=== PATIENT | male | born 1980 | race American Indian/Alaskan Native ===

== ENCOUNTER 2016-12-04 15:38 | Emergency (ER) | payer MEDICAID ==
--- NOTE | 2016-12-04 17:30 | Emergency Department Report ---
ED Psych HPI - General Chief Complaint: Psych Stated Complaint: MH/DEPRESSION Time Seen by Provider: 12/04/16 17:09 Source: EMS Mode of arrival: Ambulatory Limitations: No Limitations - History of Present Illness Initial Comments: 36-year-old male presents to the emergency department for psychiatric evaluation. Patient states he was discharged from [facility] 5 days ago. He states he was doing well until he got into an argument with his roommate at the halfway last night. Patient states he began having suicidal thoughts and thoughts about hurting his roommate. Patient states he wanted to hang himself. He continues to have these thoughts at this time. He denies visual or auditory hallucinations. Patient states that he flushed his medications down the toilet last night. There are no other complaints. MD Complaint: suicidal ideation -: Gradual, Last night Associated Psychiatric Symptoms: suicidal ideation History of same: Yes Quality: constant Improves With: none Worsens With: none Context: significant life stressor Associated Symptoms: denies other symptoms Treatments Prior to Arrival: none If Self Harm: admits thoughts of, has plan - Related Data Previous Rx's Medication Instructions Recorded Last Taken Type Albuterol Sulfate [Ventolin HFA] 2 puff IH Q4H PRN #1 hfa.aer.ad 02/28/14 Unknown Rx Azithromycin [Zithromax Z-MARGOT] 250 mg PO DAILY #6 tablet 02/28/14 Unknown Rx Promethazine [Phenergan] 25 mg PO Q6H PRN #15 tablet 02/28/14 Unknown Rx Ranitidine (Nf) [Zantac (Nf)] 150 mg PO Q12H #60 tablet 02/28/14 Unknown Rx Allergies Allergy/AdvReac Type Severity Reaction Status Date / Time No Known Allergies Allergy Unverified 02/28/14 19:26 ED Review of Systems ROS: Stated complaint: MH/DEPRESSION Other details as noted in HPI Comment: All other systems reviewed and negative Psychiatric: suicidal thoughts. denies: auditory hallucinations, visual hallucinations ED Past Medical Hx - Past Medical History Previous Medical History?: Yes Hx Headaches / Migraines: Yes Hx Psychiatric Treatment: Yes (anger management issues, Bipolar, ETOH) - Surgical History Past Surgical History?: No - Family History Family history: no significant - Social History Smoking Status: Never Smoker Substance Use Type: Alcohol, Marijuana - Medications Home Medications: Home Medications Medication Instructions Recorded Confirmed Last Taken Type Albuterol Sulfate [Ventolin HFA] 2 puff IH Q4H PRN #1 hfa.aer.ad 02/28/14 Unknown Rx Azithromycin [Zithromax Z-MARGOT] 250 mg PO DAILY #6 tablet 02/28/14 12/21/15 Unknown Rx Promethazine [Phenergan] 25 mg PO Q6H PRN #15 tablet 02/28/14 12/21/15 Unknown Rx Ranitidine (Nf) [Zantac (Nf)] 150 mg PO Q12H #60 tablet 02/28/14 12/21/15 Unknown Rx ED Physical Exam - General Limitations: No Limitations General appearance: alert, in no apparent distress - Head Head exam: Present: atraumatic, normocephalic - Eye Eye exam: Present: normal appearance, PERRL, EOMI - ENT ENT exam: Present: normal exam, normal orophraynx, mucous membranes moist - Neck Neck exam: Present: normal inspection, full ROM. Absent: tenderness - Respiratory Respiratory exam: Present: normal lung sounds bilaterally. Absent: respiratory distress - Cardiovascular Cardiovascular Exam: Present: regular rate, normal rhythm, normal heart sounds - GI/Abdominal GI/Abdominal exam: Present: soft, normal bowel sounds. Absent: distended, tenderness - Extremities Exam Extremities exam: Present: normal inspection, full ROM. Absent: tenderness - Back Exam Back exam: Present: normal inspection, full ROM. Absent: tenderness - Neurological Exam Neurological exam: Present: alert, oriented X3. Absent: motor sensory deficit - Psychiatric Psychiatric exam: Present: normal affect, normal mood, suicidal ideation - Skin Skin exam: Present: warm, dry, intact ED Course Vital Signs 12/04/16 17:49 O2 Sat by Pulse 99 Oximetry ED Medical Decision Making - Lab Data Result diagrams: 12/04/16 17:21 12/04/16 17:21 - Medical Decision Making Laboratory results reviewed. Patient is medically cleared. Form 1013 has been signed and placed in the patient's chart. Patient is awaiting mental health evaluation and placement. - Differential Diagnosis bipolar disorder, suicidal ideation, medication noncompliance Critical care attestation.: If time is entered above; I have spent that time in minutes in the direct care of this critically ill patient, excluding procedure time. ED Disposition Clinical Impression: Bipolar 1 disorder, depressed, moderate, Suicidal ideations Disposition: DC/TX-65 PSY HOSP/PSY UNIT Is pt being admited?: No Condition: Stable Referrals: PRIMARY CARE, [Primary Care Provider] - 3-5 Days Time of Disposition: 18:05
[2016-12-04 17:37] LABS: Bilirubin,Urine Negative (Negative); Blood,Urine Moderate (Negative); Ketones,Urine Trace mg/dL (Negative); Leukocyte Esterase,Urine Negative (Negative); Nitrite,Urine Negative (Negative)
[2016-12-04 17:38] LABS: Bacteria,Urine 1+ /HPF (Negative); Mucus,Urine 3+ /HPF; Urine Drugs of Abuse Note Disclamer; WBC,Urine < 1.0 /HPF (0.0-6.0)
[2016-12-04 17:47] LABS: Basophils % (Auto) 0.6 % (0.0-1.8); Eosinophils % (Auto) 0.9 % (0.0-4.3); Hematocrit 45.4 % (35.5-45.6); Hemoglobin 14.5 gm/dl (11.8-15.2); Mean Corpuscular HGB Conc 32 % (32-34); Mean Corpuscular Hemoglobin 28 pg (28-32); Mean Corpuscular Volume 87 fl (84-94); Platelet Count 324 K/mm3 (140-440); Red Blood Count 5.22 M/mm3 (3.65-5.03); Red Cell Distribution Width 15.2 % (13.2-15.2); White Blood Count 6.7 K/mm3 (4.5-11.0)
[2016-12-04 18:03] LABS: Anion Gap 19 mmol/L; BUN/Creatinine Ratio 9.09; Blood Urea Nitrogen 10 mg/dL (9-20); Calcium 9.6 mg/dL (8.4-10.2); Carbon Dioxide 25 mmol/L (22-30); Chloride 107.1 mmol/L (98-107); Glucose 97 mg/dL (75-100); Potassium 4.5 mmol/L (3.6-5.0); Sodium 147 mmol/L (137-145)
--- NOTE | 2016-12-05 11:01 | Consultation ---
History of Present Illness - Reason for Consult Consult date: 12/05/16 Reason for consult: depression and expression of SI Medications and Allergies Allergies Allergy/AdvReac Type Severity Reaction Status Date / Time No Known Allergies Allergy Unverified 02/28/14 19:26 Home Medications Medication Instructions Recorded Confirmed Last Taken Type Albuterol Sulfate [Ventolin HFA] 2 puff IH Q4H PRN #1 hfa.aer.ad 02/28/14 Unknown Rx Promethazine [Phenergan] 25 mg PO Q6H PRN #15 tablet 02/28/14 12/04/16 Unknown Rx Ranitidine (Nf) [Zantac (Nf)] 150 mg PO Q12H #60 tablet 02/28/14 12/04/16 Unknown Rx Mental Status Exam - Vital signs Last Vital Signs Temp 98 F 12/04/16 19:00 Pulse 78 12/04/16 19:00 Resp 16 12/04/16 19:00 BP 126/78 12/04/16 19:00 Pulse Ox 100 12/04/16 19:00 Results Result Diagrams: 12/04/16 17:21 12/04/16 17:21 Abnormal lab results 12/04/16 12/04/16 12/04/16 Range/Units 17:05 17:21 17:21 RBC 5.22 H (3.65-5.03) M/mm3 Sodium 147 H (137-145) mmol/L Chloride 107.1 H (98-107) mmol/L Ur Specific [place] 1.031 H (1.003-1.030) Urine Blood Moderate A (Negative) All other labs normal. Assessment and Plan Assessment and plan: CHIEF COMPLAINT IN PATIENTS WORDS: HISTORY OF PRESENT ILLNESS REQUIRING ADMISSION TO INPATIENT LEVEL OF CARE: (Describe the onset of Illness, Intensity of Symptoms, and Circumstances Leading to Admission) This is a 46 year-old domiciled male who reports a formal's past psychiatric history of major depression versus bipolar disorder now presenting due to recent reemergence of severe depression with associated suicidal thoughts and a plan to hang himself. Patient reports that he has been feeling down due to the of a family member. However, medical record review suggests that he had a dispute with somebody in the skilled nursing and didn't want to stay there or with his mother. It seems like placement might be an issue at the current time. On my examination, patient continued to report passive suicidal thoughts and noted that he called ambulance because he did not want to after having those thoughts. PSYCHIATRIC REVIEW OF SYSTEMS: Substance: Daily alcohol and marijuana use Depression: Withdrawn, passive suicidal thoughts, low moods Cierra: Currently denies labile moods, no current flight of ideas, not currently impulsive Psychosis: no AVH. No paranoia/grandiosity/erotomania Anxiety/ OCD/ PTSD: denies somatic symptoms, flashbacks, nightmares, avoidance, panic attacks Suicidality: Recent expression of desire to harm self by hanging self Other Self-Injurious Behavior: none currently, no SIB noted recently Violent/ Aggressive Behavior: none noted CURRENT MEDICATIONS: ( Psychiatric and Non-psychiatric ) Seroquel Depakote ALLERGIES: NKDA PAST PSYCHIATRIC HISTORY: ( Prior Treatment, Precipitating Factors, Diagnosis, and Course of Treatment ) Inpatient: Unknown Outpatient: Sees psychiatrist Prior Suicide Attempts: denies Prior Self-Injurious Behaviors: denies PAST PSYCHIATRIC MEDICATION TRIALS: Unknown to the patient MEDICAL HISTORY: (Chronic and Acute Illnesses, Current Medical Treatment, Recent Hospitalizations) Denies HISTORY OF TRAUMA/ABUSE: Patient denies on clinical examination DRUG / ALCOHOL ABUSE HISTORY: As above Detoxification / Withdrawal: none noted SOCIAL HISTORY: (Educational Level, Employment, Support System, Interpersonal Relationships) He resides in a skilled nursing, dispute with the member of the skilled nursing, mother seems supportive FAMILY HISTORY: Psychiatric/Substance Abuse MENTAL STATUS EXAM: General Appearance: casually dressed, in acute distress Sensorium/Consciousness: alert and responding to external stimuli Eye Contact: limited Attitude / Behavior: cooperative, but guarded Psychomotor & Musculoskeletal Activity: WNL Mood: fine Affect: constricted Speech / Language: normal Thought Processes: organized, logical, linear Thought Content: Passive SI, no HI Perception: no AVH Orientation: person, place, time and situation Judgment What would you do if you smelled smoke in a crowded movie theater?: poor/impulsive Insight: poor Intelligence Vocabulary, general fund of knowledge, educational level : Below Average Capacity of ADLs: Independent STRENGTHS: Insightful that he needs some help PSYCHOSOCIAL AND ENVIRONMENTAL STRESSORS: Living a skilled nursing due to disability ADMITTING DIAGNOSES Psychiatric: Depressive disorder Evidence for the following: Bipolar disorder most recent episode depression Medical: n/a INITIAL PLAN OF CARE AND TREATMENT GOALS: Restart home medication of Depakote and Seroquel Reevaluate tomorrow for me to continue placement in inpatient psychiatric facility
--- NOTE | 2016-12-06 13:17 | Progress Note ---
Subjective - Reason for Consult Reason for consult: depression Mental Status Exam - Vital signs Last Vital Signs Temp 98.1 F 12/06/16 09:45 Pulse 86 12/06/16 09:45 Resp 16 12/06/16 09:53 BP 131/72 12/06/16 09:45 Pulse Ox 99 12/06/16 09:53 Assessment and Plan Patient continues to report that he is having passive suicidal thoughts. Patient reports that he does not want to return back home because of the poor disrupted relationship with his mother. Sleep remains somewhat disturbed. At the current time, we are still awaiting placement for this patient. MENTAL STATUS EXAM: General Appearance: casually dressed, in acute distress Sensorium/Consciousness: alert and responding to external stimuli Eye Contact: limited Attitude / Behavior: cooperative, but guarded Psychomotor & Musculoskeletal Activity: WNL Mood: fine Affect: constricted Speech / Language: normal Thought Processes: organized, logical, linear Thought Content: Passive SI, no HI Perception: no AVH Orientation: person, place, time and situation Judgment What would you do if you smelled smoke in a crowded movie theater?: poor/impulsive Insight: poor Intelligence Vocabulary, general fund of knowledge, educational level : Below Average Capacity of ADLs: Independent INITIAL PLAN OF CARE AND TREATMENT GOALS: Continue home medication of Depakote and Seroquel Awaiting placement in an inpatient psychiatric facility
--- NOTE | 2016-12-07 13:31 | Progress Note ---
Subjective - Reason for Consult Reason for consult: depression and SI Mental Status Exam - Vital signs Last Vital Signs Temp 98.3 F 12/07/16 09:19 Pulse 99 H 12/07/16 09:30 Resp 18 12/07/16 09:30 BP 134/81 12/07/16 09:30 Pulse Ox 100 12/07/16 09:30 Assessment and Plan Patient continues to report that he is having passive suicidal thoughts. Patient reports that he does not want to return back home because of the poor disrupted relationship with his mother. Sleep remains somewhat disturbed. At the current time, we are still awaiting placement for this patient. Patient continues to be somewhat disorganized thought process and perseverating on how he cannot return to his mother or a long-term. MENTAL STATUS EXAM: General Appearance: casually dressed, in acute distress Sensorium/Consciousness: alert and responding to external stimuli Eye Contact: limited Attitude / Behavior: cooperative, but guarded Psychomotor & Musculoskeletal Activity: WNL Mood: fine Affect: constricted Speech / Language: normal Thought Processes: organized, logical, linear Thought Content: Passive SI, no HI Perception: no AVH Orientation: person, place, time and situation Judgment What would you do if you smelled smoke in a crowded movie theater?: poor/impulsive Insight: poor Intelligence Vocabulary, general fund of knowledge, educational level : Below Average Capacity of ADLs: Independent INITIAL PLAN OF CARE AND TREATMENT GOALS: Continue Depakote at current dose Obtain LFTs , amylase and lipase Increase Seroquel to 400 mg at bedtime for mood stability Awaiting placement in an inpatient psychiatric facility
[2016-12-08 08:46] LABS: Alanine Aminotransferase 7 units/L (7-56); Albumin 3.7 g/dL (3.9-5); Albumin/Globulin Ratio 0.9 %; Alkaline Phosphatase 52 units/L (35-129); Amylase 61 units/L (27-131); Lipase 17 units/L (13-60); Total Protein 7.8 g/dL (6.3-8.2)
[2016-12-08 09:01] LABS: Bilirubin,Direct < 0.2 mg/dL (0-0.2); Bilirubin,Indirect 0.1 mg/dL
--- NOTE | 2016-12-08 12:39 | Progress Note ---
Subjective - Reason for Consult Reason for consult: depression Mental Status Exam - Vital signs Last Vital Signs Temp 98.4 F 12/08/16 08:26 Pulse 72 12/08/16 08:26 Resp 18 12/08/16 08:26 BP 112/70 12/08/16 08:26 Pulse Ox 98 12/08/16 08:26 Assessment and Plan Patient continues to report that he is having passive suicidal thoughts. Still depressed and refusing to return back to home or mother. MENTAL STATUS EXAM: General Appearance: casually dressed, in acute distress Sensorium/Consciousness: alert and responding to external stimuli Eye Contact: limited Attitude / Behavior: cooperative, but guarded Psychomotor & Musculoskeletal Activity: WNL Mood: fine Affect: constricted Speech / Language: normal Thought Processes: organized, logical, linear Thought Content: Passive SI, no HI Perception: no AVH Orientation: person, place, time and situation Judgment What would you do if you smelled smoke in a crowded movie theater?: poor/impulsive Insight: poor Intelligence Vocabulary, general fund of knowledge, educational level : Below Average Capacity of ADLs: Independent INITIAL PLAN OF CARE AND TREATMENT GOALS: Continue Depakote at current dose LFTs and Amylase/Lipase normal Increase Seroquel to 500 mg at bedtime for mood stability Awaiting placement in an inpatient psychiatric facility
[2016-12-09 08:24] VITALS: BP 144/83
== END 2016-12-09 10:23 ==
LOC: EEVIPCON 15:38 → ED 15:38
DX: F31.9 Bipolar disorder, unspecified (principal); R45.851 Suicidal ideations; G43.909 Migraine, unspecified, not intractable, without status migrainosus; F12.10 Cannabis abuse, uncomplicated
CPT/HCPCS: 36415; 80048; 80074; 80164; 80307; 81001; 82150; 83690; 85025; 99285; G0480; 80320

== ENCOUNTER 2017-09-04 18:54 | Emergency (ER) | payer MEDICAID ==
--- NOTE | 2017-09-04 20:27 | Emergency Department Report ---
ED Psych HPI - General Stated Complaint: MH/OFF MEDS Time Seen by Provider: 09/04/17 20:17 - History of Present Illness Initial Comments: Patient is 36 years old male history of schizophrenia and bipolar disorder presented to the ER complaining of auditory and visual hallucinations. Patient stated that he is hearing voices asked him to hurt himself and that he'll but he is staying with him. Patient also stated that he is out of his psychiatric medication for a while. MD Complaint: suicidal ideation -: Gradual Associated Psychiatric Symptoms: suicidal ideation, homicidal ideation, racing thoughts, auditory hallucinations, visual hallucinations Quality: constant Context: not taking psychiatric Associated Symptoms: denies other symptoms Treatments Prior to Arrival: none If Self Harm: admits thoughts of - Related Data Previous Rx's Medication Instructions Recorded Last Taken Type Albuterol Sulfate [Ventolin HFA] 2 puff IH Q4H PRN #1 hfa.aer.ad 02/28/14 Unknown Rx Promethazine [Phenergan] 25 mg PO Q6H PRN #15 tablet 02/28/14 Unknown Rx Ranitidine (Nf) [Zantac (Nf)] 150 mg PO Q12H #60 tablet 02/28/14 Unknown Rx Allergies Allergy/AdvReac Type Severity Reaction Status Date / Time No Known Allergies Allergy Unverified 02/28/14 19:26 ED Review of Systems ROS: Stated complaint: MH/OFF MEDS Other details as noted in HPI Comment: All other systems reviewed and negative Constitutional: denies: chills, fever Respiratory: denies: orthopnea, shortness of breath, SOB with exertion Cardiovascular: denies: chest pain, palpitations Gastrointestinal: denies: abdominal pain, nausea, diarrhea Musculoskeletal: denies: back pain Neurological: denies: headache, weakness, numbness ED Past Medical Hx - Past Medical History Hx Headaches / Migraines: Yes Hx Psychiatric Treatment: Yes (anger management issues, Bipolar, ETOH) - Social History Smoking Status: Never Smoker Substance Use Type: Alcohol, Marijuana - Medications Home Medications: Home Medications Medication Instructions Recorded Confirmed Last Taken Type Albuterol Sulfate [Ventolin HFA] 2 puff IH Q4H PRN #1 hfa.aer.ad 02/28/14 Unknown Rx Promethazine [Phenergan] 25 mg PO Q6H PRN #15 tablet 02/28/14 12/04/16 Unknown Rx Ranitidine (Nf) [Zantac (Nf)] 150 mg PO Q12H #60 tablet 02/28/14 12/04/16 Unknown Rx ED Physical Exam - General Limitations: No Limitations General appearance: alert, in no apparent distress, anxious - Head Head exam: Present: atraumatic, normocephalic, normal inspection - Eye Eye exam: Present: normal appearance, PERRL - ENT ENT exam: Present: normal exam, normal orophraynx, mucous membranes moist - Neck Neck exam: Present: normal inspection, full ROM. Absent: tenderness, meningismus, lymphadenopathy - Respiratory Respiratory exam: Present: normal lung sounds bilaterally. Absent: respiratory distress, wheezes, rales, rhonchi, stridor, chest wall tenderness, accessory muscle use, decreased breath sounds, prolonged expiratory - Cardiovascular Cardiovascular Exam: Present: regular rate, normal rhythm, normal heart sounds - GI/Abdominal GI/Abdominal exam: Present: soft, normal bowel sounds. Absent: distended, tenderness, guarding, rebound, rigid, organomegaly, mass, bruit, pulsatile mass - Extremities Exam Extremities exam: Present: normal inspection, full ROM, normal capillary refill - Back Exam Back exam: Present: normal inspection, full ROM. Absent: tenderness, CVA tenderness (R), CVA tenderness (L) - Neurological Exam Neurological exam: Present: alert, oriented X3, CN II-XII intact, normal gait - Psychiatric Psychiatric exam: Present: agitated, anxious, homicidal ideation, suicidal ideation - Skin Skin exam: Present: warm, intact Critical care attestation.: If time is entered above; I have spent that time in minutes in the direct care of this critically ill patient, excluding procedure time. ED Disposition Clinical Impression: Acute psychosis, Suicidal ideation Disposition: DC/TX-65 PSY HOSP/PSY UNIT Is pt being admited?: No Condition: Stable Referrals: IJEOMA BRADY MD [Primary Care Provider] - 3-5 Days
[2017-09-04 21:25] LABS: Basophils # (Auto) 0.1 K/mm3 (0.0-0.1); Basophils % (Auto) 0.6 % (0.0-1.8); Eosinophils % (Auto) 0.2 % (0.0-4.3); Hematocrit 47.6 % (35.5-45.6); Hemoglobin 15.4 gm/dl (11.8-15.2); Lymphocytes # (Auto) 1.3 K/mm3 (1.2-5.4); Lymphocytes % (Auto) 14.1 % (13.4-35.0); Mean Corpuscular HGB Conc 32 % (32-34); Mean Corpuscular Hemoglobin 28 pg (28-32); Mean Corpuscular Volume 87 fl (84-94); Monocytes # (Auto) 0.4 K/mm3 (0.0-0.8); Monocytes % (Auto) 4.6 % (0.0-7.3); Platelet Count 396 K/mm3 (140-440); Red Blood Count 5.46 M/mm3 (3.65-5.03)
[2017-09-04 21:42] LABS: Alanine Aminotransferase 17 units/L (7-56); Albumin 4.5 g/dL (3.9-5); BUN/Creatinine Ratio 12; Blood Urea Nitrogen 12 mg/dL (9-20); Calcium 9.5 mg/dL (8.4-10.2); Hemolysis Index 5
[2017-09-05 00:16] LABS: Bilirubin,Urine NEG (Negative); Blood,Urine MOD (Negative); Color,Urine Yellow (Yellow); Mucus,Urine FEW /HPF; Protein,Urine <15 mg/dL mg/dL (Negative); RBC,Urine < 1.0 /HPF (0.0-6.0); WBC,Urine < 1.0 /HPF (0.0-6.0)
[2017-09-05 00:24] LABS: Amphetamine Screen,Urine PRESUMPTIVE NEGATIVE; Benzodiazepines Screen,Urine PRESUMPTIVE NEGATIVE; Cannabinoid Screen,Urine PRESUMPTIVE NEGATIVE; Cocaine Screen,Urine PRESUMPTIVE NEGATIVE; Methadone Screen,Urine PRESUMPTIVE NEGATIVE; Opiate Screen,Urine PRESUMPTIVE NEGATIVE
[2017-09-05 09:15] VITALS: BP 143/87
== END 2017-09-05 11:05 ==
LOC: ED 18:54
DX: F23 Brief psychotic disorder (principal); F31.9 Bipolar disorder, unspecified; G43.909 Migraine, unspecified, not intractable, without status migrainosus; F12.10 Cannabis abuse, uncomplicated; Z79.899 Other long term (current) drug therapy
CPT/HCPCS: 36415; 80053; 80307; 81001; 85025; 99285; G0480; 80320

== ENCOUNTER 2017-09-25 10:04 | Emergency (ER) | payer MEDICAID ==
[2017-09-25 10:40] LABS: Basophils % (Auto) 0.6 % (0.0-1.8); Eosinophils % (Auto) 0.6 % (0.0-4.3); Hematocrit 44.5 % (35.5-45.6); Lymphocytes # (Auto) 1.9 K/mm3 (1.2-5.4); Lymphocytes % (Auto) 24.7 % (13.4-35.0); Mean Corpuscular HGB Conc 32 % (32-34); Mean Corpuscular Hemoglobin 28 pg (28-32); Mean Corpuscular Volume 87 fl (84-94); Monocytes # (Auto) 0.6 K/mm3 (0.0-0.8); Monocytes % (Auto) 7.6 % (0.0-7.3); Platelet Count 307 K/mm3 (140-440); Red Blood Count 5.09 M/mm3 (3.65-5.03); Red Cell Distribution Width 15.2 % (13.2-15.2)
[2017-09-25 10:49] LABS: BUN/Creatinine Ratio 8; Blood Urea Nitrogen 8 mg/dL (9-20); Hemolysis Index 5
[2017-09-25 10:50] LABS: Bilirubin,Urine NEG (Negative); Blood,Urine MOD (Negative); Color,Urine Straw (Yellow); Protein,Urine <15 mg/dL mg/dL (Negative); Urobilinogen,Urine < 2.0 mg/dL (<2.0)
[2017-09-25 10:51] LABS: Alanine Aminotransferase 10 units/L (7-56); Albumin 3.9 g/dL (3.9-5); Lipase 21 units/L (13-60)
[2017-09-25 10:57] LABS: Bilirubin,Direct < 0.2 mg/dL (0-0.2)
[2017-09-25 10:58] LABS: Amphetamine Screen,Urine PRESUMPTIVE NEGATIVE; Benzodiazepines Screen,Urine PRESUMPTIVE NEGATIVE; Cannabinoid Screen,Urine PRESUMPTIVE NEGATIVE; Cocaine Screen,Urine PRESUMPTIVE NEGATIVE; Methadone Screen,Urine PRESUMPTIVE NEGATIVE; Opiate Screen,Urine PRESUMPTIVE NEGATIVE
--- NOTE | 2017-09-25 11:19 | Emergency Department Report ---
ED Psych HPI - General Chief Complaint: Psych Stated Complaint: ABDOMINAL PAIN Time Seen by Provider: 09/25/17 10:27 Source: patient, EMS Mode of arrival: Ambulatory - History of Present Illness Initial Comments: This is a 36-year-old male with bipolar disorder previously admitted to a psychiatric facility when he was having psychotic features and August. He was released from a mental health facility he states 2 days ago. He next went to [place]. Last night he states he went to a motel with a girl that was "not a good girl". This morning he states he would like to be admitted to a mental health Hospital where he could stay for a prolonged period of time. He admits that the problem is that he is not compliant with his mental health medications. He states that they were Seroquel and Depakote as he last recalls. He did not obtain any prescriptions on discharge from the psychiatric hospital in [place]. At triage the patient apparently mentioned abdominal pain. He has completely forgot about that complaint. He has no complaints of pain whatsoever. He is not voicing any suicidal or homicidal ideation. He is not agitated. He is currently cooperative. MD Complaint: other -: year(s) Associated Psychiatric Symptoms: none History of same: Yes Quality: intermittent Improves With: none Worsens With: none Context: not taking psychiatric Associated Symptoms: denies other symptoms - Related Data Previous Rx's Medication Instructions Recorded Last Taken Type Albuterol Sulfate [Ventolin HFA] 2 puff IH Q4H PRN #1 hfa.aer.ad 02/28/14 Unknown Rx Promethazine [Phenergan] 25 mg PO Q6H PRN #15 tablet 02/28/14 Unknown Rx Ranitidine (Nf) [Zantac (Nf)] 150 mg PO Q12H #60 tablet 02/28/14 Unknown Rx Divalproex ER [Depakote ER] 250 mg PO DAILY #30 tablet 09/25/17 Unknown Rx Quetiapine Fumarate [SEROquel] 50 mg PO BID #60 tab 09/25/17 Unknown Rx Allergies Allergy/AdvReac Type Severity Reaction Status Date / Time No Known Allergies Allergy Unverified 02/28/14 19:26 ED Review of Systems ROS: Stated complaint: ABDOMINAL PAIN Other details as noted in HPI Constitutional: denies: chills, fever Eyes: denies: eye pain, eye discharge, vision change ENT: denies: ear pain, throat pain Respiratory: denies: cough, shortness of breath, wheezing Cardiovascular: denies: chest pain, palpitations Endocrine: no symptoms reported Gastrointestinal: denies: abdominal pain, nausea, diarrhea Genitourinary: denies: urgency, dysuria Musculoskeletal: denies: back pain, joint swelling, arthralgia Skin: denies: rash, lesions Neurological: denies: headache, weakness, paresthesias Psychiatric: as per HPI. denies: anxiety, depression Hematological/Lymphatic: denies: easy bleeding, easy bruising ED Past Medical Hx - Past Medical History Hx Headaches / Migraines: Yes Hx Psychiatric Treatment: Yes (anger management issues, Bipolar, ETOH) - Surgical History Past Surgical History?: No - Social History Smoking Status: Never Smoker Substance Use Type: Alcohol - Medications Home Medications: Home Medications Medication Instructions Recorded Confirmed Last Taken Type Albuterol Sulfate [Ventolin HFA] 2 puff IH Q4H PRN #1 hfa.aer.ad 02/28/14 Unknown Rx Promethazine [Phenergan] 25 mg PO Q6H PRN #15 tablet 02/28/14 09/05/17 Unknown Rx Ranitidine (Nf) [Zantac (Nf)] 150 mg PO Q12H #60 tablet 02/28/14 09/05/17 Unknown Rx Divalproex ER [Depakote ER] 250 mg PO DAILY #30 tablet 09/25/17 Unknown Rx Quetiapine Fumarate [SEROquel] 50 mg PO BID #60 tab 09/25/17 Unknown Rx ED Physical Exam - General Limitations: No Limitations General appearance: alert, in no apparent distress - Head Head exam: Present: atraumatic, normocephalic - Eye Eye exam: Present: normal appearance. Absent: scleral icterus - ENT ENT exam: Present: mucous membranes moist - Neck Neck exam: Present: normal inspection. Absent: tenderness, meningismus - Respiratory Respiratory exam: Present: normal lung sounds bilaterally. Absent: respiratory distress - Cardiovascular Cardiovascular Exam: Present: regular rate, normal rhythm. Absent: systolic murmur, diastolic murmur, rubs, gallop - GI/Abdominal GI/Abdominal exam: Present: soft, normal bowel sounds. Absent: distended, tenderness, guarding, rebound, rigid, organomegaly, mass, bruit, pulsatile mass , hernia - Rectal Rectal exam: Present: deferred - Extremities Exam Extremities exam: Present: normal inspection - Back Exam Back exam: Present: normal inspection - Neurological Exam Neurological exam: Present: alert, oriented X3, CN II-XII intact, normal gait. Absent: motor sensory deficit - Psychiatric Psychiatric exam: Present: normal mood, flat affect - Skin Skin exam: Present: warm, dry, intact, normal color. Absent: rash ED Course Vital Signs 09/25/17 09/25/17 10:09 12:27 Temperature 98.6 F 98.0 F Pulse Rate 92 H 78 Respiratory 16 16 Rate Blood Pressure 145/83 Blood Pressure 147/78 [Left] O2 Sat by Pulse 98 99 Oximetry - Reevaluation(s) Reevaluation #1: I have restarted the patient's Seroquel and Dioval primary. This too appeared to be appropriate medications for his condition. He has no idea as to his dosing. Mental health consult is pending. 09/25/17 11:19 Reevaluation #2: As far as I can determine, the patient does not require involuntary confinement. If the mental health counselor finds otherwise she can confer with her psychiatrist. The patient is voluntary for admission if he is so inclined and eligible. Otherwise I am going to populate the chart with prescriptions for Seroquel and divalproex. 09/25/17 15:53 ED Medical Decision Making - Lab Data Result diagrams: 09/25/17 10:15 09/25/17 10:15 Laboratory Results - last 24 hr 09/25/17 09/25/17 09/25/17 10:15 10:15 10:15 WBC RBC Hgb Hct MCV MCH MCHC RDW Plt Count Lymph % (Auto) [place] % (Auto) Eos % (Auto) Baso % (Auto) Lymph # [place] # Eos # Baso # Seg Neutrophils % Seg Neutrophils # Sodium 141 Potassium 3.8 Chloride 101.1 Carbon Dioxide 26 Anion Gap 18 BUN 8 L Creatinine 1.0 Estimated GFR > 60 BUN/Creatinine Ratio 8 Glucose 97 Calcium 9.0 Magnesium Total Bilirubin Direct Bilirubin AST ALT Alkaline Phosphatase Total Protein Albumin Albumin/Globulin Ratio Lipase Urine Color Urine Turbidity Urine pH Ur Specific [place] Urine Protein Urine Glucose (UA) Urine Ketones Urine Blood Urine Nitrite Urine Bilirubin Urine Urobilinogen Ur Leukocyte Esterase Urine WBC (Auto) Urine RBC (Auto) Salicylates < 0.3 L Urine Opiates Screen Urine Methadone Screen Acetaminophen < 15.0 Ur Barbiturates Screen Ur Phencyclidine Scrn Ur Amphetamines Screen U Benzodiazepines Scrn Urine Cocaine Screen U Marijuana (THC) Screen Drugs of Abuse Note Plasma/Serum Alcohol 09/25/17 09/25/17 09/25/17 10:15 10:15 10:29 WBC 7.6 RBC 5.09 H Hgb 14.0 Hct 44.5 MCV 87 MCH 28 MCHC 32 RDW 15.2 Plt Count 307 Lymph % (Auto) 24.7 [place] % (Auto) 7.6 H Eos % (Auto) 0.6 Baso % (Auto) 0.6 Lymph # 1.9 [place] # 0.6 Eos # 0.0 Baso # 0.0 Seg Neutrophils % 66.5 Seg Neutrophils # 5.1 Sodium Potassium Chloride Carbon Dioxide Anion Gap BUN Creatinine Estimated GFR BUN/Creatinine Ratio Glucose Calcium Magnesium 2.00 Total Bilirubin 0.40 Direct Bilirubin < 0.2 AST 16 ALT 10 Alkaline Phosphatase 56 Total Protein 7.6 Albumin 3.9 Albumin/Globulin Ratio 1.1 Lipase 21 Urine Color Urine Turbidity Urine pH Ur Specific [place] Urine Protein Urine Glucose (UA) Urine Ketones Urine Blood Urine Nitrite Urine Bilirubin Urine Urobilinogen Ur Leukocyte Esterase Urine WBC (Auto) Urine RBC (Auto) Salicylates Urine Opiates Screen Urine Methadone Screen Acetaminophen Ur Barbiturates Screen Ur Phencyclidine Scrn Ur Amphetamines Screen U Benzodiazepines Scrn Urine Cocaine Screen U Marijuana (THC) Screen Drugs of Abuse Note Plasma/Serum Alcohol < 0.01 09/25/17 09/25/17 Unknown Unknown WBC RBC Hgb Hct MCV MCH MCHC RDW Plt Count Lymph % (Auto) [place] % (Auto) Eos % (Auto) Baso % (Auto) Lymph # [place] # Eos # Baso # Seg Neutrophils % Seg Neutrophils # Sodium Potassium Chloride Carbon Dioxide Anion Gap BUN Creatinine Estimated GFR BUN/Creatinine Ratio Glucose Calcium Magnesium Total Bilirubin Direct Bilirubin AST ALT Alkaline Phosphatase Total Protein Albumin Albumin/Globulin Ratio Lipase Urine Color Straw Urine Turbidity Clear Urine pH 6.0 Ur Specific [place] 1.003 Urine Protein <15 mg/dl Urine Glucose (UA) Neg Urine Ketones Neg Urine Blood Mod Urine Nitrite Neg Urine Bilirubin Neg Urine Urobilinogen < 2.0 Ur Leukocyte Esterase Neg Urine WBC (Auto) 1.0 Urine RBC (Auto) 2.0 Salicylates Urine Opiates Screen Presumptive negative Urine Methadone Screen Presumptive negative Acetaminophen Ur Barbiturates Screen Presumptive negative Ur Phencyclidine Scrn Presumptive negative Ur Amphetamines Screen Presumptive negative U Benzodiazepines Scrn Presumptive negative Urine Cocaine Screen Presumptive negative U Marijuana (THC) Screen Presumptive negative Drugs of Abuse Note Disclamer Plasma/Serum Alcohol Critical care attestation.: If time is entered above; I have spent that time in minutes in the direct care of this critically ill patient, excluding procedure time. ED Disposition Clinical Impression: Bipolar disorder Qualifiers: Active/Remission status: currently active Current bipolar episode type: mixed Current episode severity: severe Psychotic features: without psychotic features Qualified Code(s): F31.63 - Bipolar disorder, current episode mixed, severe, without psychotic features Disposition: DC-01 TO HOME OR SELFCARE Is pt being admited?: No Does the pt Need Aspirin: No Instructions: Bipolar Disorder (ED) Additional Instructions: Disposition as per mental health counselor. Rx as directed. Mental health follow-up. Prescriptions: Divalproex ER [Depakote ER] 250 mg PO DAILY #30 tablet Quetiapine Fumarate [SEROquel] 50 mg PO BID #60 tab Time of Disposition: 15:55
[2017-09-25 12:37] VITALS: BP 147/78
== END 2017-09-25 22:30 | disposition home or self-care (01) ==
LOC: ED 10:04
DX: F31.9 Bipolar disorder, unspecified (principal)
CPT/HCPCS: 36415; 80048; 80074; 80307; 81001; 83690; 83735; 85025; 99284; G0480; 80320

== ENCOUNTER 2017-09-26 02:12 | Emergency (ER) | payer MEDICAID ==
[2017-09-26 02:53] LABS: Basophils # (Auto) 0.1 K/mm3 (0.0-0.1); Basophils % (Auto) 0.8 % (0.0-1.8); Eosinophils # (Auto) 0.1 K/mm3 (0.0-0.4); Eosinophils % (Auto) 1.2 % (0.0-4.3); Hematocrit 46.7 % (35.5-45.6); Hemoglobin 15.4 gm/dl (11.8-15.2); Lymphocytes # (Auto) 2.5 K/mm3 (1.2-5.4); Lymphocytes % (Auto) 32.9 % (13.4-35.0); Mean Corpuscular HGB Conc 33 % (32-34); Mean Corpuscular Hemoglobin 28 pg (28-32); Mean Corpuscular Volume 86 fl (84-94); Monocytes # (Auto) 0.5 K/mm3 (0.0-0.8); Monocytes % (Auto) 6.8 % (0.0-7.3); Platelet Count 311 K/mm3 (140-440); Red Blood Count 5.42 M/mm3 (3.65-5.03)
[2017-09-26 03:13] LABS: Bilirubin,Urine NEG (Negative); Blood,Urine SM (Negative); Color,Urine Yellow (Yellow); Mucus,Urine 3+ /HPF; Protein,Urine <15 mg/dL mg/dL (Negative); Urobilinogen,Urine < 2.0 mg/dL (<2.0)
[2017-09-26 03:42] LABS: Alanine Aminotransferase 12 units/L (7-56); Albumin 4.2 g/dL (3.9-5); BUN/Creatinine Ratio 10; Blood Urea Nitrogen 9 mg/dL (9-20); Calcium 8.6 mg/dL (8.4-10.2); Hemolysis Index 7
--- NOTE | 2017-09-26 06:38 | Emergency Department Report ---
ED Psych HPI - General Chief Complaint: Psych Stated Complaint: MENTAL HEALTH Time Seen by Provider: 09/26/17 06:32 Source: patient Mode of arrival: Ambulatory - History of Present Illness Initial Comments: 36 year old male who has been seen and cleared now by mental health counselors onto successive days. I saw the patient yesterday and found he had no criteria for 1013 confinement. The same is true today. The patient was discharged and simply sat in the waiting room and reregistered. He tells me that over did come to take him to his mother's house in [place] but they stated "it was too far". I do not know the veracity of this statement. The patient states that his mother lives in [place] but he can't remember her phone number. Yesterday the patient told me that he would like to live in a mental health facility long-term. We do not have the capacity for such type of placement. This was explained to him. He does have a history of schizophrenia. He states that he went to a motel with a girl on Wednesday night so obviously he is amply functional with his ADLs. He is not hallucinating, homicidal or suicidal. He admits to chronic noncompliance with his psychiatric medication. He was given prescriptions yesterday which he obviously did not fill. MD Complaint: other Associated Psychiatric Symptoms: other Associated Symptoms: denies other symptoms Treatments Prior to Arrival: other - Related Data Previous Rx's Medication Instructions Recorded Last Taken Type Albuterol Sulfate [Ventolin HFA] 2 puff IH Q4H PRN #1 hfa.aer.ad 02/28/14 Unknown Rx Promethazine [Phenergan] 25 mg PO Q6H PRN #15 tablet 02/28/14 Unknown Rx Ranitidine (Nf) [Zantac (Nf)] 150 mg PO Q12H #60 tablet 02/28/14 Unknown Rx Divalproex ER [Depakote ER] 250 mg PO DAILY #30 tablet 09/25/17 Unknown Rx Quetiapine Fumarate [SEROquel] 50 mg PO BID #60 tab 09/25/17 Unknown Rx Allergies Allergy/AdvReac Type Severity Reaction Status Date / Time No Known Allergies Allergy Unverified 02/28/14 19:26 ED Review of Systems ROS: Stated complaint: MENTAL HEALTH Other details as noted in HPI Constitutional: denies: chills, fever Eyes: denies: eye pain, eye discharge, vision change ENT: denies: ear pain, throat pain Respiratory: denies: cough, shortness of breath, wheezing Cardiovascular: denies: chest pain, palpitations Endocrine: no symptoms reported Gastrointestinal: denies: abdominal pain, nausea, diarrhea Genitourinary: denies: urgency, dysuria Musculoskeletal: denies: back pain, joint swelling, arthralgia Skin: denies: rash, lesions Neurological: denies: headache, weakness, paresthesias Psychiatric: as per HPI. denies: homicidal thoughts, suicidal thoughts Hematological/Lymphatic: denies: easy bleeding, easy bruising ED Past Medical Hx - Past Medical History Hx Headaches / Migraines: Yes Hx Psychiatric Treatment: Yes (anger management issues, Bipolar, ETOH) - Surgical History Past Surgical History?: No - Social History Smoking Status: Never Smoker Substance Use Type: Alcohol, Marijuana - Medications Home Medications: Home Medications Medication Instructions Recorded Confirmed Last Taken Type Albuterol Sulfate [Ventolin HFA] 2 puff IH Q4H PRN #1 hfa.aer.ad 02/28/14 Unknown Rx Promethazine [Phenergan] 25 mg PO Q6H PRN #15 tablet 02/28/14 09/05/17 Unknown Rx Ranitidine (Nf) [Zantac (Nf)] 150 mg PO Q12H #60 tablet 02/28/14 09/05/17 Unknown Rx Divalproex ER [Depakote ER] 250 mg PO DAILY #30 tablet 09/25/17 Unknown Rx Quetiapine Fumarate [SEROquel] 50 mg PO BID #60 tab 09/25/17 Unknown Rx ED Physical Exam - General Limitations: No Limitations General appearance: alert, in no apparent distress - Head Head exam: Present: atraumatic, normocephalic - Eye Eye exam: Present: normal appearance. Absent: scleral icterus - ENT ENT exam: Present: mucous membranes moist - Neck Neck exam: Present: normal inspection - Respiratory Respiratory exam: Present: normal lung sounds bilaterally. Absent: respiratory distress - Cardiovascular Cardiovascular Exam: Present: regular rate, normal rhythm. Absent: systolic murmur, diastolic murmur, rubs, gallop - GI/Abdominal GI/Abdominal exam: Present: soft, normal bowel sounds. Absent: distended, tenderness, guarding, rebound - Rectal Rectal exam: Present: deferred - Extremities Exam Extremities exam: Present: normal inspection - Back Exam Back exam: Present: normal inspection - Neurological Exam Neurological exam: Present: alert, oriented X3, CN II-XII intact. Absent: motor sensory deficit - Psychiatric Psychiatric exam: Present: normal mood, flat affect - Skin Skin exam: Present: warm, dry, intact, normal color. Absent: rash ED Course Vital Signs 09/26/17 09/26/17 09/26/17 02:23 06:58 08:15 Temperature 98.5 F 98.4 F Pulse Rate 82 89 Respiratory 18 20 16 Rate Blood Pressure 153/101 Blood Pressure 153/101 138/90 [Left] O2 Sat by Pulse 97 98 99 Oximetry - Reevaluation(s) Reevaluation #1: I discussed this case with Chadd siddiqi mental health counselor. I also discussed it with the bottle caser. They both agree the patient should be simply discharged. 09/26/17 09:58 ED Medical Decision Making - Lab Data Result diagrams: 09/26/17 02:38 09/26/17 02:38 Laboratory Results - last 24 hr 09/26/17 09/26/17 09/26/17 02:38 02:38 02:38 WBC 7.6 RBC 5.42 H Hgb 15.4 H Hct 46.7 H MCV 86 MCH 28 MCHC 33 RDW 15.0 Plt Count 311 Lymph % (Auto) 32.9 [place] % (Auto) 6.8 Eos % (Auto) 1.2 Baso % (Auto) 0.8 Lymph # 2.5 [place] # 0.5 Eos # 0.1 Baso # 0.1 Seg Neutrophils % 58.3 Seg Neutrophils # 4.4 Sodium 142 Potassium 3.7 Chloride 99.9 Carbon Dioxide 26 Anion Gap 20 BUN 9 Creatinine 0.9 Estimated GFR > 60 BUN/Creatinine Ratio 10 Glucose 104 H Calcium 8.6 Total Bilirubin 0.20 AST 15 ALT 12 Alkaline Phosphatase 56 Total Protein 7.8 Albumin 4.2 Albumin/Globulin Ratio 1.2 Urine Color Urine Turbidity Urine pH Ur Specific [place] Urine Protein Urine Glucose (UA) Urine Ketones Urine Blood Urine Nitrite Urine Bilirubin Urine Urobilinogen Ur Leukocyte Esterase Urine WBC (Auto) Urine RBC (Auto) Urine Mucus Valproic Acid 19.1 L 09/26/17 Unknown WBC RBC Hgb Hct MCV MCH MCHC RDW Plt Count Lymph % (Auto) [place] % (Auto) Eos % (Auto) Baso % (Auto) Lymph # [place] # Eos # Baso # Seg Neutrophils % Seg Neutrophils # Sodium Potassium Chloride Carbon Dioxide Anion Gap BUN Creatinine Estimated GFR BUN/Creatinine Ratio Glucose Calcium Total Bilirubin AST ALT Alkaline Phosphatase Total Protein Albumin Albumin/Globulin Ratio Urine Color Yellow Urine Turbidity Clear Urine pH 5.0 Ur Specific [place] 1.026 Urine Protein <15 mg/dl Urine Glucose (UA) Neg Urine Ketones Neg Urine Blood Sm Urine Nitrite Neg Urine Bilirubin Neg Urine Urobilinogen < 2.0 Ur Leukocyte Esterase Neg Urine WBC (Auto) 2.0 Urine RBC (Auto) 7.0 Urine Mucus 3+ Valproic Acid Critical care attestation.: If time is entered above; I have spent that time in minutes in the direct care of this critically ill patient, excluding procedure time. ED Disposition Clinical Impression: Psychiatric disorder, Homelessness Disposition: DC-01 TO HOME OR SELFCARE Is pt being admited?: No Does the pt Need Aspirin: No Condition: Stable Instructions: Bipolar Disorder (ED), Schizophrenia (ED), Suicide Prevention for Adults (ED) Additional Instructions: Fill prescriptions previously given. Referrals: [facility] [Outside] - 24 Hours Time of Disposition: 09:59
[2017-09-26] MEDS ORDERED: ALUM-MAG HYDROX-SIMETH 200-200-20MG/5ML PO PRN (07:12)
[2017-09-26] MEDS ORDERED: MILK OF MAGNESIA PO PRN (07:12)
[2017-09-26] MEDS ORDERED: TYLENOL PO PRN (07:12)
[2017-09-26 08:25] VITALS: BP 138/90
== END 2017-09-26 11:11 | disposition home or self-care (01) ==
LOC: ED 02:12
DX: F29 Unspecified psychosis not due to a substance or known physiological condition (principal); Z59.0 Homelessness; G43.909 Migraine, unspecified, not intractable, without status migrainosus; F12.10 Cannabis abuse, uncomplicated
CPT/HCPCS: 36415; 80053; 80164; 81001; 85025

== ENCOUNTER 2021-01-03 11:32 | Emergency (ER) | payer MEDICAID ==
--- NOTE | 2021-01-03 13:04 | Emergency Department Report ---
HPI - General Chief Complaint: Psych Time Seen by Provider: 01/03/21 12:52 - HPI HPI: Room 12 The patient is a 40-year-old male present with a chief complaint of suicidal ideation. The patient states since 08: 00 this morning he developed suicidal ideation. Patient states he did not want to live anymore and wanted to shoot himself. Patient denies making any attempts at harming himself. ED Past Medical Hx - Past Medical History Previous Medical History?: Yes Hx Headaches / Migraines: Yes Hx Psychiatric Treatment: Yes (anger management issues, Bipolar, ETOH) - Surgical History Past Surgical History?: No - Family History Family history: no significant - Social History Smoking Status: Never Smoker Substance Use Type: None (Denies illicit drug use), Alcohol (Occasional) - Medications Home Medications: Home Medications Medication Instructions Recorded Confirmed Last Taken Type Albuterol Sulfate [Ventolin HFA] 2 puff IH Q4H PRN #1 hfa.aer.ad 02/28/14 09/05/17 Unknown Rx Promethazine [Phenergan] 25 mg PO Q6H PRN #15 tablet 02/28/14 09/05/17 Unknown Rx Ranitidine (Nf) [Zantac (Nf)] 150 mg PO Q12H #60 tablet 02/28/14 09/05/17 Un known Rx Divalproex ER [Depakote ER] 250 mg PO DAILY #30 tablet 09/25/17 Unknown Rx Quetiapine Fumarate [SEROquel] 50 mg PO BID #60 tab 09/25/17 Unknown Rx levoFLOXacin [Levaquin] 250 mg PO QDAY #7 tablet 01/03/21 Unknown Rx ED Review of Systems ROS: Stated complaint: SUICIDAL Other details as noted in HPI Constitutional: no symptoms reported Eyes: denies: eye pain ENT: denies: throat pain Respiratory: denies: no symptoms reported Cardiovascular: denies: chest pain Gastrointestinal: denies: abdominal pain Genitourinary: denies: dysuria Musculoskeletal: denies: back pain Neurological: denies: headache Psychiatric: suicidal thoughts Physical Exam - Physical Exam Vital Signs: Vital Signs 01/03/21 11:51 Temperature 99.6 F Pulse Rate 121 H Respiratory 18 Rate Blood Pressure 123/66 [Right] O2 Sat by Pulse 95 Oximetry Physical Exam: GENERAL: The patient is well-developed well-nourished male sitting in chair not appearing to be in acute distress. [] HEENT: Normocephalic. Atraumatic. Extraocular motions are intact. Patient has moist mucous membranes. NECK: Supple. Trachea midline CHEST/LUNGS: Clear to auscultation. There is no respiratory distress noted. HEART/CARDIOVASCULAR: Regular. There is no tachycardia. There is no gallop rub or murmur. ABDOMEN: Abdomen is soft, nontender. Patient has normal bowel sounds. There is no abdominal distention. SKIN: There is no rash. There is no edema. There is no diaphoresis. NEURO: The patient is awake, alert, and oriented. The patient is cooperative. The patient has no focal neurologic deficits. The patient has normal speech MUSCULOSKELETAL: There is no evidence of acute injury. ED Course Vital Signs 01/03/21 11:51 Temperature 99.6 F Pulse Rate 121 H Respiratory 18 Rate Blood Pressure 123/66 [Right] O2 Sat by Pulse 95 Oximetry ED Medical Decision Making - Lab Data Result diagrams: 01/03/21 13:40 01/03/21 13:40 - Differential Diagnosis Suicidal ideation Critical care attestation.: If time is entered above; I have spent that time in minutes in the direct care of this critically ill patient, excluding procedure time. ED Disposition Clinical Impression: Suicidal ideation Disposition: DC/TX-65 PSY HOSP/PSY UNIT Is pt being admited?: No Does the pt Need Aspirin: No Condition: Stable Prescriptions: levoFLOXacin [Levaquin] 250 mg PO QDAY #7 tablet Time of Disposition: 16:38 (Awaiting acceptance)
[2021-01-03 13:34] LABS: Amphetamine Screen,Urine Negative; Benzodiazepines Screen,Urine Negative; Cannabinoid Screen,Urine Negative; Cocaine Screen,Urine Negative; Methadone Screen,Urine Negative; Opiate Screen,Urine Negative
[2021-01-03 13:52] LABS: Bilirubin,Urine NEG (Negative); Blood,Urine MOD (Negative); Color,Urine Yellow (Yellow); Mucus,Urine 1+ /HPF; Protein,Urine <15 mg/dL mg/dL (Negative); Urobilinogen,Urine < 2.0 mg/dL (<2.0)
[2021-01-03 14:22] LABS: Basophils # (Auto) 0.1 K/mm3 (0.0-0.1); Basophils % (Auto) 1.2 % (0.0-1.8); Eosinophils # (Auto) 0.1 K/mm3 (0.0-0.4); Hemoglobin 12.9 gm/dl (11.8-15.2); Lymphocytes # (Auto) 1.7 K/mm3 (1.2-5.4); Lymphocytes % (Auto) 26.5 % (13.4-35.0); Mean Corpuscular HGB Conc 32 % (32-34); Mean Corpuscular Volume 85 fl (84-94); Monocytes # (Auto) 0.4 K/mm3 (0.0-0.8); Monocytes % (Auto) 5.9 % (0.0-7.3); Platelet Count 348 K/mm3 (140-440); Red Blood Count 4.72 M/mm3 (3.65-5.03); Red Cell Distribution Width 16.3 % (13.2-15.2)
[2021-01-03 14:40] LABS: Alanine Aminotransferase 10 units/L (7-56); Albumin 4.1 g/dL (3.9-5); BUN/Creatinine Ratio 10; Blood Urea Nitrogen 9 mg/dL (9-20); Calcium 9.4 mg/dL (8.4-10.2); Hemolysis Index 6
--- NOTE | 2021-01-04 10:40 | Event Note ---
S: No events overnight O: Vital Signs - 24 hr 01/03/21 01/03/21 01/03/21 11:51 16:52 20:16 Temperature 99.6 F 98.1 F 97.6 F Pulse Rate 121 H 72 91 H Respiratory 18 16 18 Rate Blood Pressure 123/66 122/66 122/45 [Right] O2 Sat by Pulse 95 99 100 Oximetry 01/04/21 09:40 Temperature 97.8 F Pulse Rate 90 Respiratory 20 Rate Blood Pressure 110/51 [Right] O2 Sat by Pulse 100 Oximetry A: Suicidal ideation P: 1013, awaiting psych placement
--- NOTE | 2021-01-04 10:50 | Consultation ---
History of Present Illness - Reason for Consult Consult date: 01/04/21 Reason for consult: SI - History of Present Psychiatric Illness Sandro Szymanski is a 40y/o male patient who endorses SI. He says he has a plan to shoot himself with his uncle gun. The patient says he drinks a 12 pack a day and that usually is the reason he starts feeling the way he feels. The patient says his last drink was right before coming here and states he normally starts shaking if he doesn't get a drink. He denies hallucinations of any kind. He says he has a history of Bipolar and hasn't been on meds in a long time. The patient denies any illicit drug use or nicotine. PAST PSYCHIATRIC HISTORY Diagnoses: Bipolar Suicide attempts or Self-harm behavior: Yes Prior psychiatric hospitalizations: Yes Substance Abuse history: alcohol Previous psychiatric medications tried: couldn't recall Outpatient treatment: No PAST MEDICAL HISTORY: None reported Family Psychiatric History: None reported or documented SOCIAL HISTORY Marital Status: single Living Arrangements: hotel Employment Status: Disabled Access to guns/weapons: Denies Education: high school History of Abuse: Denies Legal History: Denies REVIEW OF SYSTEMS Constitutional: Negative for weight loss ENT: Negative for stridor Respiratory: Negative for cough or hemoptysis All other systems reviewed and are negative MENTAL STATUS EXAMINATION General Appearance and Behavior: Age appropriate, good hygiene, wearing appropriate clothes, good eye contact, cooperative Cooperation: Participating/engaged Psychomotor Behavior: Psychomotor normal Mood: depressed Affect and affective range: congruent with stated mood Thought Process: goal directed Thought Content: suicidal thoughts Speech: normal tone and pace Suicidal Ideation: Yes Homicidal Ideation: Denies Hallucinations: Denies Delusions: None elicited Impulse Control: Impaired Insight and Judgment: Limited insight and judgment Memory: Impaired Attention: impaired Orientation: Alert, oriented Assessment and Plan (1) Bipolar Disorder (2) Alcohol Dependence Treatment Plan [address] 125mg po BID Prozac 10mg po daily Trazodone 50mg po qhs CIWA Sitter: Per primary Medical: Per primary Disposition: Recommend acute psychiatric inpatient Will follow Case staffed with Dr. Uribe Medications and Allergies Allergies Allergy/AdvReac Type Severity Reaction Status Date / Time No Known Allergies Allergy Unverified 02/28/14 19:26 Home Medications Medication Instructions Recorded Confirmed Last Taken Type Albuterol Sulfate [Ventolin HFA] 2 puff IH Q4H PRN #1 hfa.aer.ad 02/28/14 09/05/17 Unknown Rx Promethazine [Phenergan] 25 mg PO Q6H PRN #15 tablet 02/28/14 09/05/17 Unknown Rx Ranitidine (Nf) [Zantac (Nf)] 150 mg PO Q12H #60 tablet 02/28/14 09/05/17 Unknown Rx Divalproex ER [Depakote ER] 250 mg PO DAILY #30 tablet 09/25/17 Unknown Rx Quetiapine Fumarate [SEROquel] 50 mg PO BID #60 tab 09/25/17 Unknown Rx levoFLOXacin [Levaquin] 250 mg PO QDAY #7 tablet 01/03/21 Unknown Rx Mental Status Exam - Vital signs Last Vital Signs Temp 97.8 F 01/04/21 09:40 Pulse 90 01/04/21 09:40 Resp 20 01/04/21 09:40 BP 110/51 01/04/21 09:40 Pulse Ox 100 01/04/21 09:40 Results Result Diagrams: 01/03/21 13:40 01/03/21 13:40 Abnormal lab results 01/03/21 01/03/21 01/03/21 Range/Units 13:20 13:40 13:40 MCH 27 L (28-32) pg RDW 16.3 H (13.2-15.2) % Urine WBC (Auto) 8.0 H (0.0-6.0) /HPF Salicylates < 0.3 L (2.8-20.0) mg/dL Acetaminophen (10.0-30.0) ug/mL 01/03/21 Range/Units 13:40 MCH (28-32) pg RDW (13.2-15.2) % Urine WBC (Auto) (0.0-6.0) /HPF Salicylates (2.8-20.0) mg/dL Acetaminophen 5.0 L (10.0-30.0) ug/mL All other labs normal.
[2021-01-04] MEDS ORDERED: chlordiazePOXIDE 25 MG CAP PO PRN (10:56)
[2021-01-04] MEDS ORDERED: LORazepam 2 MG/ML VIAL IV PRN (10:56)
[2021-01-04] MEDS ORDERED: DIVALPROEX DR 125 MG TAB PO SCH (11:00)
[2021-01-04] MEDS ORDERED: FLUoxetine 10 MG TAB PO SCH (11:00)
[2021-01-04 20:02] VITALS: BP 112/51
[2021-01-04] MEDS ORDERED: traZODone 50 MG TAB PO SCH (22:00)
== END 2021-01-04 21:34 ==
LOC: ED 11:32
DX: R45.851 Suicidal ideations (principal); Z20.822 Contact with and (suspected) exposure to COVID-19; G43.909 Migraine, unspecified, not intractable, without status migrainosus; Z79.899 Other long term (current) drug therapy
CPT/HCPCS: 36415; 80053; 80307; 81001; 85025; 99285; U0003; 80320; G0480

== ENCOUNTER 2021-12-11 20:10 | Emergency (ER) | payer MEDICAID ==
[2021-12-11 22:14] LABS: Bacteria,Urine 1+ /HPF (Negative); Hyaline Casts,Urine 7 /LPF; Mucus,Urine 3+ /HPF
[2021-12-11 22:18] LABS: Amphetamine Screen,Urine PRESUMPTIVE NEGATIVE; Benzodiazepines Screen,Urine PRESUMPTIVE NEGATIVE; Cannabinoid Screen,Urine PRESUMPTIVE NEGATIVE; Cocaine Screen,Urine PRESUMPTIVE NEGATIVE; Methadone Screen,Urine PRESUMPTIVE NEGATIVE; Opiate Screen,Urine PRESUMPTIVE NEGATIVE
[2021-12-11 22:20] LABS: Bilirubin,Urine Negative (Negative); Blood,Urine 1+ (Negative); Color,Urine Yellow (Yellow)
[2021-12-11 22:21] LABS: Urobilinogen,Urine < 2.0 mg/dL (<2.0)
[2021-12-11 23:23] LABS: Basophils # (Auto) 0.1 K/mm3 (0.0-0.1); Basophils % (Auto) 0.8 % (0.0-1.8); Eosinophils % (Auto) 0.3 % (0.0-4.3); Hematocrit 41.3 % (35.5-45.6); Hemoglobin 13.4 gm/dl (11.8-15.2); Lymphocytes # (Auto) 1.9 K/mm3 (1.2-5.4); Lymphocytes % (Auto) 21.2 % (13.4-35.0); Mean Corpuscular HGB Conc 32 % (32-34); Mean Corpuscular Volume 82 fl (84-94); Monocytes # (Auto) 0.5 K/mm3 (0.0-0.8); Monocytes % (Auto) 5.5 % (0.0-7.3); Platelet Count 387 K/mm3 (140-440); Red Blood Count 5.04 M/mm3 (3.65-5.03); Red Cell Distribution Width 17.7 % (13.2-15.2)
[2021-12-11 23:36] LABS: BUN/Creatinine Ratio 13; Blood Urea Nitrogen 15 mg/dL (9-20); Calcium 9.8 mg/dL (8.4-10.2); Hemolysis Index 13
--- NOTE | 2021-12-12 00:50 | Emergency Department Report ---
ED Psych HPI - General Chief Complaint: Psych Stated Complaint: SUICIDAL THOUGHTS Time Seen by Provider: 12/12/21 00:48 Source: patient Mode of arrival: Ambulatory - History of Present Illness Initial Comments: PT STATES SI AND HI THOUGHTS TONIGHT, NO SPECIFIC PERSON, NO PLANS, NO PREVIOUS ATTEMPTS, PT STATES THAT HE HAS BEEN OUT OF HIS DEPAKOTE AND SEROQUEL X 1 MONTH, ALSO STATES THAT HE STARTED DRINKING TONIGHT MD Complaint: suicidal ideation, feels depressed -: days(s) Associated Psychiatric Symptoms: depression, suicidal ideation History of same: Yes Quality: constant Worsens With: achohol Context: not taking psychiatric - Related Data Previous Rx's Medication Instructions Recorded Last Taken Type Albuterol Sulfate [Ventolin HFA] 2 puff IH Q4H PRN #1 hfa.aer.ad 02/28/14 Unknown Rx Promethazine [Phenergan] 25 mg PO Q6H PRN #15 tablet 02/28/14 Unknown Rx Ranitidine (Nf) [Zantac (Nf)] 150 mg PO Q12H #60 tablet 02/28/14 Unknown Rx Divalproex ER [Depakote ER] 250 mg PO DAILY #30 tablet 09/25/17 Unknown Rx Quetiapine Fumarate [SEROquel] 50 mg PO BID #60 tab 09/25/17 Unknown Rx levoFLOXacin [Levaquin] 250 mg PO QDAY #7 tablet 01/03/21 Unknown Rx Allergies Allergy/AdvReac Type Severity Reaction Status Date / Time No Known Allergies Allergy Unverified 02/28/14 19:26 ED Review of Systems ROS: Stated complaint: SUICIDAL THOUGHTS Other details as noted in HPI Constitutional: denies: chills, fever Eyes: denies: eye pain, eye discharge, vision change ENT: denies: ear pain, throat pain Respiratory: denies: cough, shortness of breath, wheezing Cardiovascular: denies: chest pain, palpitations Endocrine: no symptoms reported Gastrointestinal: denies: abdominal pain, nausea, diarrhea Genitourinary: denies: urgency, dysuria Musculoskeletal: denies: back pain, joint swelling, arthralgia Skin: denies: rash, lesions Neurological: denies: headache, weakness, paresthesias Psychiatric: denies: anxiety, depression Hematological/Lymphatic: denies: easy bleeding, easy bruising ED Past Medical Hx - Past Medical History Hx Headaches / Migraines: Yes Hx Psychiatric Treatment: Yes (anger management issues, Bipolar, ETOH) - Social History Smoking Status: Never Smoker Substance Use Type: None (Denies illicit drug use), Alcohol (Occasional) - Medications Home Medications: Home Medications Medication Instructions Recorded Confirmed Last Taken Type Albuterol Sulfate [Ventolin HFA] 2 puff IH Q4H PRN #1 hfa.aer.ad 02/28/14 Unknown Rx Promethazine [Phenergan] 25 mg PO Q6H PRN #15 tablet 02/28/14 09/05/17 Unknown Rx Ranitidine (Nf) [Zantac (Nf)] 150 mg PO Q12H #60 tablet 02/28/14 09/05/17 Unknown Rx Divalproex ER [Depakote ER] 250 mg PO DAILY #30 tablet 09/25/17 Unknown Rx Quetiapine Fumarate [SEROquel] 50 mg PO BID #60 tab 09/25/17 Unknown Rx levoFLOXacin [Levaquin] 250 mg PO QDAY #7 tablet 01/03/21 Unknown Rx ED Physical Exam - General Limitations: No Limitations General appearance: alert, anxious - Head Head exam: Present: atraumatic, normocephalic - Eye Eye exam: Present: normal appearance - ENT ENT exam: Present: mucous membranes moist - Neck Neck exam: Present: normal inspection - Respiratory Respiratory exam: Present: normal lung sounds bilaterally. Absent: respiratory distress - Cardiovascular Cardiovascular Exam: Present: regular rate, normal rhythm. Absent: systolic murmur, diastolic murmur, rubs, gallop - GI/Abdominal GI/Abdominal exam: Present: soft, normal bowel sounds - Rectal Rectal exam: Present: deferred - Extremities Exam Extremities exam: Present: normal inspection - Back Exam Back exam: Present: normal inspection - Neurological Exam Neurological exam: Present: alert, oriented X3 - Psychiatric Psychiatric exam: Present: normal affect, depressed, suicidal ideation - Skin Skin exam: Present: warm, dry, intact, normal color. Absent: rash ED Course Vital Signs 12/11/21 12/12/21 12/12/21 21:15 09:18 09:25 Temperature 98.8 F 98.8 F Pulse Rate 127 H 87 Respiratory 18 18 Rate Blood Pressure 131/71 Blood Pressure 107/63 [Left] O2 Sat by Pulse 98 99 97 Oximetry 12/12/21 19:36 Temperature 98.1 F Pulse Rate 118 H Respiratory 18 Rate Blood Pressure Blood Pressure 129/78 [Left] O2 Sat by Pulse 97 Oximetry ED Medical Decision Making - Lab Data Result diagrams: 12/11/21 22:40 12/11/21 22:40 Critical care attestation.: If time is entered above; I have spent that time in minutes in the direct care of this critically ill patient, excluding procedure time. ED Disposition Clinical Impression: Suicidal ideation Disposition: 01 HOME / SELF CARE / HOMELESS Is pt being admited?: No Does the pt Need Aspirin: No Condition: Stable Referrals: PRIMARY CARE, [Primary Care Provider] - 3-5 Days
[2021-12-12 09:15] LABS: Mucus,Urine 3+ /HPF
[2021-12-12 09:16] LABS: Bilirubin,Urine Negative (Negative); Blood,Urine Moderate (Negative); Color,Urine Yellow (Yellow); Urobilinogen,Urine < 2.0 mg/dL (<2.0)
[2021-12-12 09:37] LABS: Amphetamine Screen,Urine Negative; Benzodiazepines Screen,Urine Negative; Cannabinoid Screen,Urine Negative; Cocaine Screen,Urine Negative; Methadone Screen,Urine Negative; Opiate Screen,Urine Negative
--- NOTE | 2021-12-12 12:49 | Consultation ---
History of Present Illness - Reason for Consult Consult date: 12/12/21 Reason for consult: Mental health evaluation - History of Present Psychiatric Illness HPI: THE STATES SI AND HI THOUGHTS TONIGHT, NO SPECIFIC PERSON, NO PLANS, NO PREVIOUS ATTEMPTS, PT STATES THAT HE HAS BEEN OUT OF HIS DEPAKOTE AND SEROQUEL X 1 MONTH, ALSO STATES THAT HE STARTED DRINKING TONIGHT The patient is a 41 year old male with history of Bipolar who presents to the Ed with suicidal/homicidal ideation. The patient was seen today. he is calm, alert and oriented x3. The reports ongoing depression; states he started drinking again" I had 3 beers and a shot of liquor." He reports that he got into an argument with his uncle yesterday. The patient reports having suicidal ideation and homicidal ideation with a plan to shoot himself and his uncle. He denies hallucinations. PAST PSYCHIATRIC HISTORY Diagnoses: Bipolar Suicide attempts or Self-harm behavior: Yes Prior psychiatric hospitalizations: Yes Substance Abuse history: Alcohol Previous psychiatric medications tried: Seroquel, Depakote Outpatient treatment: Denies PAST MEDICAL HISTORY: none reported Family Psychiatric History: None reported or documented SOCIAL HISTORY Marital Status: Single Living Arrangements: Lives alone Employment Status: Unemployed Access to guns/weapons: Denies Education: 12th grade History of Abuse: none reported Legal History: none reported REVIEW OF SYSTEMS Constitutional: Negative for weight loss ENT: Negative for stridor Respiratory: Negative for cough or hemoptysis All other systems reviewed and are negative MENTAL STATUS EXAMINATION General Appearance and Behavior: Age appropriate, good hygiene, wearing appropriate clothes, fair eye contact, cooperative polite with questioning. Cooperation: Participating/engaged, guarded Psychomotor Behavior: unremarkable and within normal limits Mood: Depressed Affect and affective range: congruent with mood Thought Process: Goal directed Thought Content: SI/HI Speech: Normal volume, Regular rate and rhythm, Suicidal Ideation: Yes Homicidal Ideation: Yes Hallucinations: Denies Delusions: None Impulse Control: Normal Insight and Judgment: Limited insight and judgment, Memory: Normal, Attention: Normal, Orientation: Alert, oriented, Assessment and Plan (1) Bipolar Disorder Treatment 1013 Seroquel 50mg po QHS Depakote 125mg po BID Sitter: Per primary Medical: Per primary Disposition: recommend acute inpatient psychiatric treatment. Will follow. Thanks Case staffed with Dr. Uribe Medications and Allergies Allergies Allergy/AdvReac Type Severity Reaction Status Date / Time No Known Allergies Allergy Unverified 02/28/14 19:26 Home Medications Medication Instructions Recorded Confirmed Last Taken Type Albuterol Sulfate [Ventolin HFA] 2 puff IH Q4H PRN #1 hfa.aer.ad 02/28/14 09/05/17 Unknown Rx Promethazine [Phenergan] 25 mg PO Q6H PRN #15 tablet 02/28/14 09/05/17 Unknown Rx Ranitidine (Nf) [Zantac (Nf)] 150 mg PO Q12H #60 tablet 02/28/14 09/05/17 Unknown Rx Divalproex ER [Depakote ER] 250 mg PO DAILY #30 tablet 09/25/17 Unknown Rx Quetiapine Fumarate [SEROquel] 50 mg PO BID #60 tab 09/25/17 Unknown Rx levoFLOXacin [Levaquin] 250 mg PO QDAY #7 tablet 01/03/21 Unknown Rx Mental Status Exam - Vital signs Last Vital Signs Temp 98.8 F 12/12/21 09:18 Pulse 87 12/12/21 09:18 Resp 18 12/12/21 09:18 BP 107/63 12/12/21 09:18 Pulse Ox 97 12/12/21 09:25 Results Result Diagrams: 12/11/21 22:40 12/11/21 22:40 Abnormal lab results 12/11/21 12/11/21 12/11/21 Range/Units 22:40 22:40 22:40 RBC (3.65-5.03) M/mm3 MCV (84-94) fl MCH (28-32) pg RDW (13.2-15.2) % Seg Neutrophils % (40.0-70.0) % Chloride 109.4 H (98-107) mmol/L Carbon Dioxide 20 L (22-30) mmol/L Ur Specific [place] (1.003-1.030) Urine Blood (Negative) Salicylates < 0.3 L (2.8-20.0) mg/dL Acetaminophen 5.0 L (10.0-30.0) ug/mL 12/11/21 12/11/21 12/12/21 Range/Units 22:40 Unknown 08:05 RBC 5.04 H (3.65-5.03) M/mm3 MCV 82 L (84-94) fl MCH 27 L (28-32) pg RDW 17.7 H (13.2-15.2) % Seg Neutrophils % 72.2 H (40.0-70.0) % Chloride (98-107) mmol/L Carbon Dioxide (22-30) mmol/L Ur Specific [place] 1.035 H (1.003-1.030) Urine Blood Moderate A (Negative) Salicylates (2.8-20.0) mg/dL Acetaminophen (10.0-30.0) ug/mL All other labs normal.
[2021-12-12] MEDS: DIVALPROEX DR 125 MG TAB PO SCH ×2 (14:21→22:00)
[2021-12-12] MEDS: QUEtiapine 25 MG TAB PO SCH ×2 (14:21→22:00)
[2021-12-13] MEDS: QUEtiapine 25 MG TAB PO SCH ×3 (09:37→22:00)
[2021-12-13] MEDS: DIVALPROEX DR 125 MG TAB PO SCH ×2 (09:37→22:00)
--- NOTE | 2021-12-13 10:20 | Progress Note ---
Subjective - Reason for Consult Consult date: 12/13/21 Reason for consult: Mental health evaluation - Chief Complaint Chief complaint: The patient was seen this morning. he continues with be depressed with suicidal ideation; rates depression as 510. REVIEW OF SYSTEMS Constitutional: Negative for weight loss ENT: Negative for stridor Respiratory: Negative for cough or hemoptysis All other systems reviewed and are negative MENTAL STATUS EXAMINATION General Appearance and Behavior: Age appropriate, good hygiene, wearing appropriate clothes, fair eye contact, cooperative polite with questioning. Cooperation: Participating/engaged, guarded Psychomotor Behavior: unremarkable and within normal limits Mood: Depressed Affect and affective range: congruent with mood Thought Process: Goal directed Thought Content: SI Speech: Normal volume, Regular rate and rhythm, Suicidal Ideation: Yes Homicidal Ideation: Denies Hallucinations: Denies Delusions: None Impulse Control: Normal Insight and Judgment: Limited insight and judgment, Memory: Normal, Attention: Normal, Orientation: Alert, oriented, Assessment and Plan (1) Bipolar Disorder Treatment 1013 Sertraline 25mg po daily Seroquel 50mg po QHS Depakote 125mg po BID Sitter: Per primary Medical: Per primary Disposition: recommend acute inpatient psychiatric treatment. Will follow. Thanks Case staffed with Dr. Uribe Medications and Allergies Mental Status Exam - Vital signs Last Vital Signs Temp 98.5 F 12/13/21 09:38 Pulse 110 H 12/13/21 09:38 Resp 20 12/13/21 09:38 BP 135/82 12/13/21 09:38 Pulse Ox 97 12/13/21 09:38
[2021-12-13] MEDS: SERTRALINE 25 MG TAB PO SCH (12:00)
[2021-12-14] MEDS: QUEtiapine 25 MG TAB PO SCH ×2 (09:31→14:17)
[2021-12-14] MEDS: DIVALPROEX DR 125 MG TAB PO SCH (09:31)
[2021-12-14] MEDS: SERTRALINE 25 MG TAB PO SCH (09:31)
--- NOTE | 2021-12-14 09:44 | Progress Note ---
Subjective - Reason for Consult Consult date: 12/14/21 Reason for consult: suicidal ideation - Chief Complaint Chief complaint: The patient was seen this morning. He reports having bad dreams about his family. The patient continues with be depressed , rates as 5/10 with suicidal plan to run in front of a moving car. REVIEW OF SYSTEMS Constitutional: Negative for weight loss ENT: Negative for stridor Respiratory: Negative for cough or hemoptysis All other systems reviewed and are negative MENTAL STATUS EXAMINATION General Appearance and Behavior: Age appropriate, good hygiene, wearing appropriate clothes, fair eye contact, cooperative polite with questioning. Cooperation: Participating/engaged, guarded Psychomotor Behavior: unremarkable and within normal limits Mood: Depressed Affect and affective range: congruent with mood Thought Process: Goal directed Thought Content: SI Speech: Normal volume, Regular rate and rhythm, Suicidal Ideation: Yes Homicidal Ideation: Denies Hallucinations: Denies Delusions: None Impulse Control: Normal Insight and Judgment: Limited insight and judgment, Memory: Normal, Attention: Normal, Orientation: Alert, oriented, Assessment and Plan (1) Bipolar Disorder Treatment 1013 Sertraline 25mg po daily Seroquel 50mg po QHS Depakote 125mg po BID Sitter: Per primary Medical: Per primary Disposition: recommend acute inpatient psychiatric treatment. Will follow. Thanks Case staffed with Dr. Uribe Medications and Allergies Mental Status Exam - Vital signs Last Vital Signs Temp 98.4 F 12/14/21 09:32 Pulse 97 H 12/14/21 09:32 Resp 20 12/14/21 09:32 BP 145/80 12/14/21 09:32 Pulse Ox 97 12/14/21 09:32
--- NOTE | 2021-12-14 12:29 | Event Note ---
Date: 12/14/21 The patient was evaluated in the emergency department for symptoms described in the history of present illness. He/she was evaluated in the context of the global COVID-19 pandemic, which necessitated consideration that the patient might be at risk for infection with the virus that causes COVID-19. Institutional protocols and algorithms that pertain to the evaluation of patients at risk for COVID-19 are in a state of rapid change based on information released by regulatory bodies including the CDC and federal and state organizations. These policies and algorithms were followed during the patient's care in the emergency department. Please note that these policies, procedures and recommendations changed on a rapid basis. Laboratory studies, vital signs, nursing documentation, ER documentation, and psychiatric documentation are reviewed and appreciated. Nursing team reports no acute events this morning or concerns. The patient is awake and ambulating and does not appear to be in any acute distress. The patient was deemed medically suitable for psychiatric disposition and placement during his initial ER evaluation. The patient continues to remain medically suitable for psychiatric placement and disposition. He is currently pending psychiatric placement. Patient is not hypoxic. COVID-positive status does not preclude psychiatric disposition from a medical perspective Vital Signs 12/11/21 12/12/21 12/12/21 21:15 09:18 09:25 Temperature 98.8 F 98.8 F Pulse Rate 127 H 87 Respiratory 18 18 Rate Blood Pressure 131/71 Blood Pressure 107/63 [Left] O2 Sat by Pulse 98 99 97 Oximetry 12/12/21 12/12/21 12/12/21 19:36 20:10 22:00 Temperature 98.1 F 98 F Pulse Rate 118 H 96 H Respiratory 18 18 Rate Blood Pressure Blood Pressure 129/78 128/78 [Left] O2 Sat by Pulse 97 100 100 Oximetry 12/13/21 12/13/21 12/13/21 09:38 20:31 22:00 Temperature 98.5 F 98.5 F Pulse Rate 110 H 80 Respiratory 20 18 Rate Blood Pressure Blood Pressure 135/82 123/71 [Left] O2 Sat by Pulse 97 99 100 Oximetry 12/14/21 12/14/21 09:02 09:32 Temperature 98.4 F Pulse Rate 97 H Respiratory 20 Rate Blood Pressure Blood Pressure 145/80 [Left] O2 Sat by Pulse 100 97 Oximetry Lab Results 12/11/21 12/11/21 12/11/21 Range/Units 22:40 22:40 22:40 WBC (4.5-11.0) K/mm3 RBC (3.65-5.03) M/mm3 Hgb (11.8-15.2) gm/dl Hct (35.5-45.6) % MCV (84-94) fl MCH (28-32) pg MCHC (32-34) % RDW (13.2-15.2) % Plt Count (140-440) K/mm3 Lymph % (Auto) (13.4-35.0) % Yates % (Auto) (0.0-7.3) % Eos % (Auto) (0.0-4.3) % Baso % (Auto) (0.0-1.8) % Lymph # (Auto) (1.2-5.4) K/mm3 Yates # (Auto) (0.0-0.8) K/mm3 Eos # (Auto) (0.0-0.4) K/mm3 Baso # (Auto) (0.0-0.1) K/mm3 Seg Neutrophils % (40.0-70.0) % Seg Neutrophils # (1.8-7.7) K/mm3 Sodium 143 (137-145) mmol/L Potassium 4.1 (3.6-5.0) mmol/L Chloride 109.4 H (98-107) mmol/L Carbon Dioxide 20 L (22-30) mmol/L Anion Gap 18 mmol/L BUN 15 (9-20) mg/dL Creatinine 1.2 (0.8-1.3) mg/dL Estimated GFR > 60 ml/min BUN/Creatinine Ratio 13 % Glucose 96 (75-100) mg/dL Calcium 9.8 (8.4-10.2) mg/dL Urine Color (Yellow) Urine Turbidity (Clear) Urine pH (5.0-7.0) Ur Specific [place] (1.003-1.030) Urine Protein (Negative) mg/dL Urine Glucose (UA) (Negative) mg/dL Urine Ketones (Negative) mg/dL Urine Blood (Negative) Urine Nitrite (Negative) Ur Reducing Substances Urine Bilirubin (Negative) Urine Ictotest Urine Urobilinogen (<2.0) mg/dL Ur Leukocyte Esterase (Negative) Urine WBC (Auto) (0.0-6.0) /HPF Urine RBC (Auto) (0.0-6.0) /HPF U Epithel Cells (Auto) (0-13.0) /HPF Urine Bacteria (Auto) (Negative) /HPF Hyaline Casts /LPF Urine Mucus /HPF Salicylates < 0.3 L (2.8-20.0) mg/dL Urine Opiates Screen Urine Methadone Screen Acetaminophen 5.0 L (10.0-30.0) ug/mL Ur Barbiturates Screen Ur Phencyclidine Scrn Ur Amphetamines Screen U Benzodiazepines Scrn Urine Cocaine Screen U Marijuana (THC) Screen Drugs of Abuse Note Plasma/Serum Alcohol (0-0.07) % Coronavirus (PCR) (Negative) 12/11/21 12/11/21 12/11/21 Range/Units 22:40 22:40 Unknown WBC 8.8 (4.5-11.0) K/mm3 RBC 5.04 H (3.65-5.03) M/mm3 Hgb 13.4 (11.8-15.2) gm/dl Hct 41.3 (35.5-45.6) % MCV 82 L (84-94) fl MCH 27 L (28-32) pg MCHC 32 (32-34) % RDW 17.7 H (13.2-15.2) % Plt Count 387 (140-440) K/mm3 Lymph % (Auto) 21.2 (13.4-35.0) % Yates % (Auto) 5.5 (0.0-7.3) % Eos % (Auto) 0.3 (0.0-4.3) % Baso % (Auto) 0.8 (0.0-1.8) % Lymph # (Auto) 1.9 (1.2-5.4) K/mm3 Yates # (Auto) 0.5 (0.0-0.8) K/mm3 Eos # (Auto) 0.0 (0.0-0.4) K/mm3 Baso # (Auto) 0.1 (0.0-0.1) K/mm3 Seg Neutrophils % 72.2 H (40.0-70.0) % Seg Neutrophils # 6.4 (1.8-7.7) K/mm3 Sodium (137-145) mmol/L Potassium (3.6-5.0) mmol/L Chloride (98-107) mmol/L Carbon Dioxide (22-30) mmol/L Anion Gap mmol/L BUN (9-20) mg/dL Creatinine (0.8-1.3) mg/dL Estimated GFR ml/min BUN/Creatinine Ratio % Glucose (75-100) mg/dL Calcium (8.4-10.2) mg/dL Urine Color Yellow (Yellow) Urine Turbidity Hazy (Clear) Urine pH 5.0 (5.0-7.0) Ur Specific [place] 1.035 H (1.003-1.030) Urine Protein 30 mg/dl (Negative) mg/dL Urine Glucose (UA) Negative (Negative) mg/dL Urine Ketones Negative (Negative) mg/dL Urine Blood 1+ (Negative) Urine Nitrite Negative (Negative) Ur Reducing Substances Not Reportable Urine Bilirubin Negative (Negative) Urine Ictotest Not Reportable Urine Urobilinogen < 2.0 (<2.0) mg/dL Ur Leukocyte Esterase Negative (Negative) Urine WBC (Auto) 5.0 (0.0-6.0) /HPF Urine RBC (Auto) 10.0 (0.0-6.0) /HPF U Epithel Cells (Auto) 2.0 (0-13.0) /HPF Urine Bacteria (Auto) 1+ (Negative) /HPF Hyaline Casts 7 /LPF Urine Mucus 3+ /HPF Salicylates (2.8-20.0) mg/dL Urine Opiates Screen Urine Methadone Screen Acetaminophen (10.0-30.0) ug/mL Ur Barbiturates Screen Ur Phencyclidine Scrn Ur Amphetamines Screen U Benzodiazepines Scrn Urine Cocaine Screen U Marijuana (THC) Screen Drugs of Abuse Note Plasma/Serum Alcohol < 0.01 (0-0.07) % Coronavirus (PCR) (Negative) 12/11/21 12/12/21 12/12/21 Range/Units Unknown 08:05 08:05 WBC (4.5-11.0) K/mm3 RBC (3.65-5.03) M/mm3 Hgb (11.8-15.2) gm/dl Hct (35.5-45.6) % MCV (84-94) fl MCH (28-32) pg MCHC (32-34) % RDW (13.2-15.2) % Plt Count (140-440) K/mm3 Lymph % (Auto) (13.4-35.0) % Yates % (Auto) (0.0-7.3) % Eos % (Auto) (0.0-4.3) % Baso % (Auto) (0.0-1.8) % Lymph # (Auto) (1.2-5.4) K/mm3 Yates # (Auto) (0.0-0.8) K/mm3 Eos # (Auto) (0.0-0.4) K/mm3 Baso # (Auto) (0.0-0.1) K/mm3 Seg Neutrophils % (40.0-70.0) % Seg Neutrophils # (1.8-7.7) K/mm3 Sodium (137-145) mmol/L Potassium (3.6-5.0) mmol/L Chloride (98-107) mmol/L Carbon Dioxide (22-30) mmol/L Anion Gap mmol/L BUN (9-20) mg/dL Creatinine (0.8-1.3) mg/dL Estimated GFR ml/min BUN/Creatinine Ratio % Glucose (75-100) mg/dL Calcium (8.4-10.2) mg/dL Urine Color Yellow (Yellow) Urine Turbidity Clear (Clear) Urine pH 6.0 (5.0-7.0) Ur Specific [place] 1.030 (1.003-1.030) Urine Protein 30 mg/dl (Negative) mg/dL Urine Glucose (UA) Negative (Negative) mg/dL Urine Ketones Negative (Negative) mg/dL Urine Blood Moderate A (Negative) Urine Nitrite Negative (Negative) Ur Reducing Substances Not Reportable Urine Bilirubin Negative (Negative) Urine Ictotest Not Reportable Urine Urobilinogen < 2.0 (<2.0) mg/dL Ur Leukocyte Esterase Negative (Negative) Urine WBC (Auto) 3.0 (0.0-6.0) /HPF Urine RBC (Auto) 9.0 (0.0-6.0) /HPF U Epithel Cells (Auto) 2.0 (0-13.0) /HPF Urine Bacteria (Auto) (Negative) /HPF Hyaline Casts /LPF Urine Mucus 3+ /HPF Salicylates (2.8-20.0) mg/dL Urine Opiates Screen Presumptive negative Negative Urine Methadone Screen Presumptive negative Negative Acetaminophen (10.0-30.0) ug/mL Ur Barbiturates Screen Presumptive negative Negative Ur Phencyclidine Scrn Presumptive negative Negative Ur Amphetamines Screen Presumptive negative Negative U Benzodiazepines Scrn Presumptive negative Negative Urine Cocaine Screen Presumptive negative Negative U Marijuana (THC) Screen Presumptive negative Negative Drugs of Abuse Note Disclamer Disclamer Plasma/Serum Alcohol (0-0.07) % Coronavirus (PCR) (Negative) 12/12/21 Range/Units Unknown WBC (4.5-11.0) K/mm3 RBC (3.65-5.03) M/mm3 Hgb (11.8-15.2) gm/dl Hct (35.5-45.6) % MCV (84-94) fl MCH (28-32) pg MCHC (32-34) % RDW (13.2-15.2) % Plt Count (140-440) K/mm3 Lymph % (Auto) (13.4-35.0) % Yates % (Auto) (0.0-7.3) % Eos % (Auto) (0.0-4.3) % Baso % (Auto) (0.0-1.8) % Lymph # (Auto) (1.2-5.4) K/mm3 Yates # (Auto) (0.0-0.8) K/mm3 Eos # (Auto) (0.0-0.4) K/mm3 Baso # (Auto) (0.0-0.1) K/mm3 Seg Neutrophils % (40.0-70.0) % Seg Neutrophils # (1.8-7.7) K/mm3 Sodium (137-145) mmol/L Potassium (3.6-5.0) mmol/L Chloride (98-107) mmol/L Carbon Dioxide (22-30) mmol/L Anion Gap mmol/L BUN (9-20) mg/dL Creatinine (0.8-1.3) mg/dL Estimated GFR ml/min BUN/Creatinine Ratio % Glucose (75-100) mg/dL Calcium (8.4-10.2) mg/dL Urine Color (Yellow) Urine Turbidity (Clear) Urine pH (5.0-7.0) Ur Specific [place] (1.003-1.030) Urine Protein (Negative) mg/dL Urine Glucose (UA) (Negative) mg/dL Urine Ketones (Negative) mg/dL Urine Blood (Negative) Urine Nitrite (Negative) Ur Reducing Substances Urine Bilirubin (Negative) Urine Ictotest Urine Urobilinogen (<2.0) mg/dL Ur Leukocyte Esterase (Negative) Urine WBC (Auto) (0.0-6.0) /HPF Urine RBC (Auto) (0.0-6.0) /HPF U Epithel Cells (Auto) (0-13.0) /HPF Urine Bacteria (Auto) (Negative) /HPF Hyaline Casts /LPF Urine Mucus /HPF Salicylates (2.8-20.0) mg/dL Urine Opiates Screen Urine Methadone Screen Acetaminophen (10.0-30.0) ug/mL Ur Barbiturates Screen Ur Phencyclidine Scrn Ur Amphetamines Screen U Benzodiazepines Scrn Urine Cocaine Screen U Marijuana (THC) Screen Drugs of Abuse Note Plasma/Serum Alcohol (0-0.07) % Coronavirus (PCR) Positive A (Negative)
--- NOTE | 2021-12-15 09:58 | Progress Note ---
Subjective - Reason for Consult Consult date: 12/15/21 Reason for consult: Mental health evaluation - Chief Complaint Chief complaint: The patient was seen this morning. He reports having difficulty with maintaining sleep. The patient continues with be depressed , rates as 5/10 with no plan. REVIEW OF SYSTEMS Constitutional: Negative for weight loss ENT: Negative for stridor Respiratory: Negative for cough or hemoptysis All other systems reviewed and are negative MENTAL STATUS EXAMINATION General Appearance and Behavior: Age appropriate, good hygiene, wearing appropriate clothes, fair eye contact, cooperative polite with questioning. Cooperation: Participating/engaged, guarded Psychomotor Behavior: unremarkable and within normal limits Mood: Depressed Affect and affective range: congruent with mood Thought Process: Goal directed Thought Content: SI Speech: Normal volume, Regular rate and rhythm, Suicidal Ideation: Yes Homicidal Ideation: Denies Hallucinations: Denies Delusions: None Impulse Control: Normal Insight and Judgment: Limited insight and judgment, Memory: Normal, Attention: Normal, Orientation: Alert, oriented, Assessment and Plan (1) Bipolar Disorder Treatment 1013 Sertraline 25mg po daily Seroquel 100mg po QHS Seroquel 25mg po BID Depakote 125mg po BID Sitter: Per primary Medical: Per primary Disposition: recommend acute inpatient psychiatric treatment. Will follow. Thanks Case staffed with Dr. Uribe Medications and Allergies Mental Status Exam - Vital signs Last Vital Signs Temp 98.8 F 12/15/21 09:05 Pulse 76 12/15/21 09:05 Resp 20 12/15/21 09:05 BP 125/82 12/15/21 09:05 Pulse Ox 98 12/15/21 09:05
--- NOTE | 2021-12-15 11:19 | Event Note ---
Date: 12/15/21 vss , no events overnight medically cleared covid status noted , awaiting placement
[2021-12-15] MEDS: QUEtiapine 25 MG TAB PO SCH (11:35)
[2021-12-15] MEDS: SERTRALINE 25 MG TAB PO SCH (11:35)
[2021-12-15] MEDS: DIVALPROEX DR 125 MG TAB PO SCH (11:35)
[2021-12-15] MEDS ORDERED: QUEtiapine 100 MG TAB PO SCH (22:00)
--- NOTE | 2021-12-16 12:08 | Emergency Department Report ---
Blank Doc - Documentation Documentation: 41-year-old male with bipolar disorder, depression, suicidal ideation. Curren tly awaiting placement. No events documented overnight. Vital signs unremarkable. COVID-positive. Nurse practitioner mental health provider note pending
[2021-12-16] MEDS: QUEtiapine 25 MG TAB PO SCH (13:46)
[2021-12-16] MEDS: DIVALPROEX DR 125 MG TAB PO SCH (13:46)
[2021-12-16] MEDS: SERTRALINE 25 MG TAB PO SCH (13:46)
--- NOTE | 2021-12-16 14:05 | Progress Note ---
Subjective - Reason for Consult Consult date: 12/16/21 Reason for consult: suicidal ideation - Chief Complaint Chief complaint: The patient was seen this morning. He reports states he feels better but continues to endorse suicidal ideation with no plan. REVIEW OF SYSTEMS Constitutional: Negative for weight loss ENT: Negative for stridor Respiratory: Negative for cough or hemoptysis All other systems reviewed and are negative MENTAL STATUS EXAMINATION General Appearance and Behavior: Age appropriate, good hygiene, wearing appropriate clothes, fair eye contact, cooperative polite with questioning. Cooperation: Participating/engaged, guarded Psychomotor Behavior: unremarkable and within normal limits Mood: Depressed Affect and affective range: congruent with mood Thought Process: Goal directed Thought Content: SI Speech: Normal volume, Regular rate and rhythm, Suicidal Ideation: Yes Homicidal Ideation: Denies Hallucinations: Denies Delusions: None Impulse Control: Normal Insight and Judgment: Limited insight and judgment, Memory: Normal, Attention: Normal, Orientation: Alert, oriented, Assessment and Plan (1) Bipolar Disorder Treatment 1013 Sertraline 25mg po daily Seroquel 100mg po QHS Seroquel 25mg po BID Depakote 125mg po BID Sitter: Per primary Medical: Per primary Disposition: recommend acute inpatient psychiatric treatment. Will follow. Thanks Case staffed with Dr. Uribe Medications and Allergies Mental Status Exam - Vital signs Last Vital Signs Temp 98.6 F 12/16/21 08:38 Pulse 92 H 12/16/21 08:38 Resp 20 12/16/21 08:38 BP 117/65 12/16/21 08:38 Pulse Ox 98 12/16/21 08:38
[2021-12-17 08:35] VITALS: BP 125/66
[2021-12-17] MEDS: DIVALPROEX DR 125 MG TAB PO SCH (09:43)
[2021-12-17] MEDS: SERTRALINE 25 MG TAB PO SCH (09:44)
[2021-12-17] MEDS: QUEtiapine 25 MG TAB PO SCH (09:44)
--- NOTE | 2021-12-17 10:21 | Progress Note ---
Subjective - Reason for Consult Consult date: 12/17/21 Reason for consult: suicidal - Chief Complaint Chief complaint: The patient was seen this morning. He reports states he feels better. The patient presents with appropriate affect. He denies any current suicidal/homicidal ideation and denies hallucinations. REVIEW OF SYSTEMS Constitutional: Negative for weight loss ENT: Negative for stridor Respiratory: Negative for cough or hemoptysis All other systems reviewed and are negative MENTAL STATUS EXAMINATION General Appearance and Behavior: Age appropriate, good hygiene, wearing appropriate clothes, fair eye contact, cooperative polite with questioning. Cooperation: Participating/engaged Psychomotor Behavior: unremarkable and within normal limits Mood: "ok" Affect and affective range: congruent with mood Thought Process: Goal directed Thought Content: Reality oriented Speech: Normal volume, Regular rate and rhythm, Suicidal Ideation: Denies Homicidal Ideation: Denies Hallucinations: Denies Delusions: None Impulse Control: Normal Insight and Judgment: Limited insight and judgment, Memory: Normal, Attention: Normal, Orientation: Alert, orientedx3 Assessment and Plan (1) Bipolar Disorder Treatment [id number] Continue Sertraline 25mg po daily Continue Seroquel 100mg po QHS Continue Depakote 125mg po BID Sitter: Per primary Medical: Per primary Disposition: Do not recommend acute inpatient psychiatric treatment. [facility] will provide patient with psychiatric out patient resources. Will sign off. Thanks Case staffed with Dr. Uribe Medications and Allergies Mental Status Exam - Vital signs Last Vital Signs Temp 98.4 F 12/17/21 08:35 Pulse 82 12/17/21 08:35 Resp 20 12/17/21 08:35 BP 125/66 12/17/21 08:35 Pulse Ox 99 12/17/21 08:38
--- NOTE | 2021-12-17 12:58 | Event Note ---
Date: 12/17/21 The patient was evaluated in the emergency department for symptoms described in the history of present illness. He/she was evaluated in the context of the global COVID-19 pandemic, which necessitated consideration that the patient might be at risk for infection with the virus that causes COVID-19. Institutional protocols and algorithms that pertain to the evaluation of patients at risk for COVID-19 are in a state of rapid change based on information released by regulatory bodies including the CDC and federal and state organizations. These policies and algorithms were followed during the patient's care in the emergency department. Please note that these policies, procedures and recommendations changed on a rapid basis. Laboratory studies, vital signs, nursing documentation, ER documentation, and psychiatric documentation are reviewed and appreciated. Nursing team reports no acute events this morning or concerns. The patient is awake and ambulating and does not appear to be in any acute distress. The patient was deemed medically suitable for psychiatric disposition and placement during his initial ER evaluation. The patient continues to remain medically suitable for psychiatric placement and disposition. He is currently pending psychiatric placement. Psychiatric team have recommended discontinuation of 1013 and discharged with outpatient follow-up at this time. Vital Signs 12/11/21 12/12/21 12/12/21 21:15 09:18 09:25 Temperature 98.8 F 98.8 F Pulse Rate 127 H 87 Respiratory 18 18 Rate Blood Pressure 131/71 Blood Pressure 107/63 [Left] O2 Sat by Pulse 98 99 97 Oximetry 12/12/21 12/12/21 12/12/21 19:36 20:10 22:00 Temperature 98.1 F 98 F Pulse Rate 118 H 96 H Respiratory 18 18 Rate Blood Pressure Blood Pressure 129/78 128/78 [Left] O2 Sat by Pulse 97 100 100 Oximetry 12/13/21 12/13/21 12/13/21 09:38 20:31 22:00 Temperature 98.5 F 98.5 F Pulse Rate 110 H 80 Respiratory 20 18 Rate Blood Pressure Blood Pressure 135/82 123/71 [Left] O2 Sat by Pulse 97 99 100 Oximetry 12/14/21 12/14/21 12/14/21 09:02 09:32 20:10 Temperature 98.4 F Pulse Rate 97 H Respiratory 20 Rate Blood Pressure Blood Pressure 145/80 [Left] O2 Sat by Pulse 100 97 100 Oximetry 12/14/21 12/15/21 12/15/21 20:42 07:40 09:05 Temperature 98.6 F 98.5 F 98.8 F Pulse Rate 77 62 76 Respiratory 18 18 20 Rate Blood Pressure Blood Pressure 124/79 120/81 125/82 [Left] O2 Sat by Pulse 99 98 98 Oximetry 12/16/21 12/16/21 12/17/21 08:38 19:42 08:35 Temperature 98.6 F 98.4 F 98.4 F Pulse Rate 92 H 93 H 82 Respiratory 20 18 20 Rate Blood Pressure Blood Pressure 117/65 120/70 125/66 [Left] O2 Sat by Pulse 98 99 99 Oximetry 12/17/21 08:38 Temperature Pulse Rate Respiratory Rate Blood Pressure Blood Pressure [Left] O2 Sat by Pulse 99 Oximetry Lab Results 12/11/21 12/11/21 12/11/21 Range/Units 22:40 22:40 22:40 WBC (4.5-11.0) K/mm3 RBC (3.65-5.03) M/mm3 Hgb (11.8-15.2) gm/dl Hct (35.5-45.6) % MCV (84-94) fl MCH (28-32) pg MCHC (32-34) % RDW (13.2-15.2) % Plt Count (140-440) K/mm3 Lymph % (Auto) (13.4-35.0) % Williamson % (Auto) (0.0-7.3) % Eos % (Auto) (0.0-4.3) % Baso % (Auto) (0.0-1.8) % Lymph # (Auto) (1.2-5.4) K/mm3 Williamson # (Auto) (0.0-0.8) K/mm3 Eos # (Auto) (0.0-0.4) K/mm3 Baso # (Auto) (0.0-0.1) K/mm3 Seg Neutrophils % (40.0-70.0) % Seg Neutrophils # (1.8-7.7) K/mm3 Sodium 143 (137-145) mmol/L Potassium 4.1 (3.6-5.0) mmol/L Chloride 109.4 H (98-107) mmol/L Carbon Dioxide 20 L (22-30) mmol/L Anion Gap 18 mmol/L BUN 15 (9-20) mg/dL Creatinine 1.2 (0.8-1.3) mg/dL Estimated GFR > 60 ml/min BUN/Creatinine Ratio 13 % Glucose 96 (75-100) mg/dL Calcium 9.8 (8.4-10.2) mg/dL Urine Color (Yellow) Urine Turbidity (Clear) Urine pH (5.0-7.0) Ur Specific [place] (1.003-1.030) Urine Protein (Negative) mg/dL Urine Glucose (UA) (Negative) mg/dL Urine Ketones (Negative) mg/dL Urine Blood (Negative) Urine Nitrite (Negative) Ur Reducing Substances Urine Bilirubin (Negative) Urine Ictotest Urine Urobilinogen (<2.0) mg/dL Ur Leukocyte Esterase (Negative) Urine WBC (Auto) (0.0-6.0) /HPF Urine RBC (Auto) (0.0-6.0) /HPF U Epithel Cells (Auto) (0-13.0) /HPF Urine Bacteria (Auto) (Negative) /HPF Hyaline Casts /LPF Urine Mucus /HPF Salicylates < 0.3 L (2.8-20.0) mg/dL Urine Opiates Screen Urine Methadone Screen Acetaminophen 5.0 L (10.0-30.0) ug/mL Ur Barbiturates Screen Ur Phencyclidine Scrn Ur Amphetamines Screen U Benzodiazepines Scrn Urine Cocaine Screen U Marijuana (THC) Screen Drugs of Abuse Note Plasma/Serum Alcohol (0-0.07) % Coronavirus (PCR) (Negative) 12/11/21 12/11/21 12/11/21 Range/Units 22:40 22:40 Unknown WBC 8.8 (4.5-11.0) K/mm3 RBC 5.04 H (3.65-5.03) M/mm3 Hgb 13.4 (11.8-15.2) gm/dl Hct 41.3 (35.5-45.6) % MCV 82 L (84-94) fl MCH 27 L (28-32) pg MCHC 32 (32-34) % RDW 17.7 H (13.2-15.2) % Plt Count 387 (140-440) K/mm3 Lymph % (Auto) 21.2 (13.4-35.0) % Williamson % (Auto) 5.5 (0.0-7.3) % Eos % (Auto) 0.3 (0.0-4.3) % Baso % (Auto) 0.8 (0.0-1.8) % Lymph # (Auto) 1.9 (1.2-5.4) K/mm3 Williamson # (Auto) 0.5 (0.0-0.8) K/mm3 Eos # (Auto) 0.0 (0.0-0.4) K/mm3 Baso # (Auto) 0.1 (0.0-0.1) K/mm3 Seg Neutrophils % 72.2 H (40.0-70.0) % Seg Neutrophils # 6.4 (1.8-7.7) K/mm3 Sodium (137-145) mmol/L Potassium (3.6-5.0) mmol/L Chloride (98-107) mmol/L Carbon Dioxide (22-30) mmol/L Anion Gap mmol/L BUN (9-20) mg/dL Creatinine (0.8-1.3) mg/dL Estimated GFR ml/min BUN/Creatinine Ratio % Glucose (75-100) mg/dL Calcium (8.4-10.2) mg/dL Urine Color Yellow (Yellow) Urine Turbidity Hazy (Clear) Urine pH 5.0 (5.0-7.0) Ur Specific [place] 1.035 H (1.003-1.030) Urine Protein 30 mg/dl (Negative) mg/dL Urine Glucose (UA) Negative (Negative) mg/dL Urine Ketones Negative (Negative) mg/dL Urine Blood 1+ (Negative) Urine Nitrite Negative (Negative) Ur Reducing Substances Not Reportable Urine Bilirubin Negative (Negative) Urine Ictotest Not Reportable Urine Urobilinogen < 2.0 (<2.0) mg/dL Ur Leukocyte Esterase Negative (Negative) Urine WBC (Auto) 5.0 (0.0-6.0) /HPF Urine RBC (Auto) 10.0 (0.0-6.0) /HPF U Epithel Cells (Auto) 2.0 (0-13.0) /HPF Urine Bacteria (Auto) 1+ (Negative) /HPF Hyaline Casts 7 /LPF Urine Mucus 3+ /HPF Salicylates (2.8-20.0) mg/dL Urine Opiates Screen Urine Methadone Screen Acetaminophen (10.0-30.0) ug/mL Ur Barbiturates Screen Ur Phencyclidine Scrn Ur Amphetamines Screen U Benzodiazepines Scrn Urine Cocaine Screen U Marijuana (THC) Screen Drugs of Abuse Note Plasma/Serum Alcohol < 0.01 (0-0.07) % Coronavirus (PCR) (Negative) 12/11/21 12/12/21 12/12/21 Range/Units Unknown 08:05 08:05 WBC (4.5-11.0) K/mm3 RBC (3.65-5.03) M/mm3 Hgb (11.8-15.2) gm/dl Hct (35.5-45.6) % MCV (84-94) fl MCH (28-32) pg MCHC (32-34) % RDW (13.2-15.2) % Plt Count (140-440) K/mm3 Lymph % (Auto) (13.4-35.0) % Williamson % (Auto) (0.0-7.3) % Eos % (Auto) (0.0-4.3) % Baso % (Auto) (0.0-1.8) % Lymph # (Auto) (1.2-5.4) K/mm3 Williamson # (Auto) (0.0-0.8) K/mm3 Eos # (Auto) (0.0-0.4) K/mm3 Baso # (Auto) (0.0-0.1) K/mm3 Seg Neutrophils % (40.0-70.0) % Seg Neutrophils # (1.8-7.7) K/mm3 Sodium (137-145) mmol/L Potassium (3.6-5.0) mmol/L Chloride (98-107) mmol/L Carbon Dioxide (22-30) mmol/L Anion Gap mmol/L BUN (9-20) mg/dL Creatinine (0.8-1.3) mg/dL Estimated GFR ml/min BUN/Creatinine Ratio % Glucose (75-100) mg/dL Calcium (8.4-10.2) mg/dL Urine Color Yellow (Yellow) Urine Turbidity Clear (Clear) Urine pH 6.0 (5.0-7.0) Ur Specific [place] 1.030 (1.003-1.030) Urine Protein 30 mg/dl (Negative) mg/dL Urine Glucose (UA) Negative (Negative) mg/dL Urine Ketones Negative (Negative) mg/dL Urine Blood Moderate A (Negative) Urine Nitrite Negative (Negative) Ur Reducing Substances Not Reportable Urine Bilirubin Negative (Negative) Urine Ictotest Not Reportable Urine Urobilinogen < 2.0 (<2.0) mg/dL Ur Leukocyte Esterase Negative (Negative) Urine WBC (Auto) 3.0 (0.0-6.0) /HPF Urine RBC (Auto) 9.0 (0.0-6.0) /HPF U Epithel Cells (Auto) 2.0 (0-13.0) /HPF Urine Bacteria (Auto) (Negative) /HPF Hyaline Casts /LPF Urine Mucus 3+ /HPF Salicylates (2.8-20.0) mg/dL Urine Opiates Screen Presumptive negative Negative Urine Methadone Screen Presumptive negative Negative Acetaminophen (10.0-30.0) ug/mL Ur Barbiturates Screen Presumptive negative Negative Ur Phencyclidine Scrn Presumptive negative Negative Ur Amphetamines Screen Presumptive negative Negative U Benzodiazepines Scrn Presumptive negative Negative Urine Cocaine Screen Presumptive negative Negative U Marijuana (THC) Screen Presumptive negative Negative Drugs of Abuse Note Disclamer Disclamer Plasma/Serum Alcohol (0-0.07) % Coronavirus (PCR) (Negative) 12/12/21 Range/Units Unknown WBC (4.5-11.0) K/mm3 RBC (3.65-5.03) M/mm3 Hgb (11.8-15.2) gm/dl Hct (35.5-45.6) % MCV (84-94) fl MCH (28-32) pg MCHC (32-34) % RDW (13.2-15.2) % Plt Count (140-440) K/mm3 Lymph % (Auto) (13.4-35.0) % Williamson % (Auto) (0.0-7.3) % Eos % (Auto) (0.0-4.3) % Baso % (Auto) (0.0-1.8) % Lymph # (Auto) (1.2-5.4) K/mm3 Williamson # (Auto) (0.0-0.8) K/mm3 Eos # (Auto) (0.0-0.4) K/mm3 Baso # (Auto) (0.0-0.1) K/mm3 Seg Neutrophils % (40.0-70.0) % Seg Neutrophils # (1.8-7.7) K/mm3 Sodium (137-145) mmol/L Potassium (3.6-5.0) mmol/L Chloride (98-107) mmol/L Carbon Dioxide (22-30) mmol/L Anion Gap mmol/L BUN (9-20) mg/dL Creatinine (0.8-1.3) mg/dL Estimated GFR ml/min BUN/Creatinine Ratio % Glucose (75-100) mg/dL Calcium (8.4-10.2) mg/dL Urine Color (Yellow) Urine Turbidity (Clear) Urine pH (5.0-7.0) Ur Specific [place] (1.003-1.030) Urine Protein (Negative) mg/dL Urine Glucose (UA) (Negative) mg/dL Urine Ketones (Negative) mg/dL Urine Blood (Negative) Urine Nitrite (Negative) Ur Reducing Substances Urine Bilirubin (Negative) Urine Ictotest Urine Urobilinogen (<2.0) mg/dL Ur Leukocyte Esterase (Negative) Urine WBC (Auto) (0.0-6.0) /HPF Urine RBC (Auto) (0.0-6.0) /HPF U Epithel Cells (Auto) (0-13.0) /HPF Urine Bacteria (Auto) (Negative) /HPF Hyaline Casts /LPF Urine Mucus /HPF Salicylates (2.8-20.0) mg/dL Urine Opiates Screen Urine Methadone Screen Acetaminophen (10.0-30.0) ug/mL Ur Barbiturates Screen Ur Phencyclidine Scrn Ur Amphetamines Screen U Benzodiazepines Scrn Urine Cocaine Screen U Marijuana (THC) Screen Drugs of Abuse Note Plasma/Serum Alcohol (0-0.07) % Coronavirus (PCR) Positive A (Negative)
== END 2021-12-17 13:44 | disposition home or self-care (01) ==
LOC: ED 20:10 → EEVIPCON 20:10 → ED 12-17 13:44
DX: R45.851 Suicidal ideations (principal); Z20.822 Contact with and (suspected) exposure to COVID-19; F10.20 Alcohol dependence, uncomplicated
CPT/HCPCS: 36415; 80048; 80307; 81001; 85025; 99284; U0003; 80320; G0480

== ENCOUNTER 2022-01-29 10:48 | Emergency (ER) | payer MEDICAID ==
--- NOTE | 2022-01-29 11:38 | Emergency Department Report ---
ED Psych HPI - General Chief Complaint: Psych Stated Complaint: SUICIDAL THOUGHTS Time Seen by Provider: 01/29/22 11:13 Source: EMS Mode of arrival: Stretcher - History of Present Illness Initial Comments: 41-year-old male with a history of alcohol abuse and bipolar disorder presents to the emergency department complaining of suicidal and homicidal ideations since 7 AM this morning. Patient states that he has been drinking and is very angry, and wants to kill his uncle. Patient does have a plan that he may shoot himself or his uncle. Patient got out of [facility] on Wednesday, and feels unstable from his bipolar disorder and alcohol dependence. Patient states that he has not been on his medications since December 22. Patient denies any alleviating factors. - Related Data Previous Rx's Medication Instructions Recorded Last Taken Type Albuterol Sulfate [Ventolin HFA] 2 puff IH Q4H PRN #1 hfa.aer.ad 02/28/14 Unknown Rx Promethazine [Phenergan] 25 mg PO Q6H PRN #15 tablet 02/28/14 Unknown Rx Ranitidine (Nf) [Zantac (Nf)] 150 mg PO Q12H #60 tablet 02/28/14 Unknown Rx Divalproex ER [Depakote ER] 250 mg PO DAILY #30 tablet 09/25/17 Unknown Rx Quetiapine Fumarate [SEROquel] 50 mg PO BID #60 tab 09/25/17 Unknown Rx levoFLOXacin [Levaquin] 250 mg PO QDAY #7 tablet 01/03/[address] [DepaKOTE DR] 125 mg PO BID 30 Days #60 tablet 12/17/21 Unknown Rx QUEtiapine [SEROquel] 100 mg PO QHS 30 Days #30 12/17/21 Unknown Rx Sertraline [Zoloft] 25 mg PO QDAY 30 Days #30 tab 12/17/21 Unknown Rx Allergies Allergy/AdvReac Type Severity Reaction Status Date / Time No Known Allergies Allergy Verified 01/29/22 10:59 ED Review of Systems ROS: Stated complaint: SUICIDAL THOUGHTS Other details as noted in HPI Comment: All other systems reviewed and negative Constitutional: denies: no symptoms reported, chills, fever Eyes: denies: eye pain, eye discharge, vision change ENT: denies: ear pain, throat pain Respiratory: denies: cough, shortness of breath, wheezing Cardiovascular: denies: chest pain, palpitations Endocrine: no symptoms reported Gastrointestinal: denies: abdominal pain, nausea, diarrhea Genitourinary: denies: urgency, dysuria Musculoskeletal: denies: back pain, joint swelling, arthralgia Skin: denies: rash, lesions Neurological: denies: headache, weakness, paresthesias Psychiatric: depression, homicidal thoughts, suicidal thoughts, other (Alcohol abuse). denies: anxiety, auditory hallucinations, visual hallucinations Hematological/Lymphatic: denies: easy bleeding, easy bruising ED Past Medical Hx - Past Medical History Previous Medical History?: Yes Hx Headaches / Migraines: Yes Hx Psychiatric Treatment: Yes (anger management issues, Bipolar, ETOH) - Social History Smoking Status: Never Smoker Substance Use Type: Alcohol - Medications Home Medications: Home Medications Medication Instructions Recorded Confirmed Last Taken Type Albuterol Sulfate [Ventolin HFA] 2 puff IH Q4H PRN #1 hfa.aer.ad 02/28/14 09/05/17 Unknown Rx Promethazine [Phenergan] 25 mg PO Q6H PRN #15 tablet 02/28/14 09/05/17 Unknown Rx Ranitidine (Nf) [Zantac (Nf)] 150 mg PO Q12H #60 tablet 02/28/14 09/05/17 Unknown Rx Divalproex ER [Depakote ER] 250 mg PO DAILY #30 tablet 09/25/17 Unknown Rx Quetiapine Fumarate [SEROquel] 50 mg PO BID #60 tab 09/25/17 Unknown Rx levoFLOXacin [Levaquin] 250 mg PO QDAY #7 tablet 01/03/[address] [DepaKOTE DR] 125 mg PO BID 30 Days #60 tablet 12/17/21 Unknown Rx QUEtiapine [SEROquel] 100 mg PO QHS 30 Days #30 12/17/21 Unknown Rx Sertraline [Zoloft] 25 mg PO QDAY 30 Days #30 tab 12/17/21 Unknown Rx ED Physical Exam - General Limitations: No Limitations General appearance: alert, in no apparent distress - Head Head exam: Present: atraumatic, normocephalic - Eye Eye exam: Present: normal appearance, PERRL, EOMI - ENT ENT exam: Present: mucous membranes moist - Neck Neck exam: Present: normal inspection - Respiratory Respiratory exam: Present: normal lung sounds bilaterally. Absent: respiratory distress - Cardiovascular Cardiovascular Exam: Present: regular rate, normal rhythm. Absent: systolic murmur, diastolic murmur, rubs, gallop - GI/Abdominal GI/Abdominal exam: Present: soft, normal bowel sounds - Rectal Rectal exam: Present: deferred - Extremities Exam Extremities exam: Present: normal inspection - Back Exam Back exam: Present: normal inspection - Neurological Exam Neurological exam: Present: alert, oriented X3 - Psychiatric Psychiatric exam: Present: depressed, homicidal ideation, suicidal ideation - Skin Skin exam: Present: warm, dry, intact, normal color. Absent: rash ED Course Vital Signs 01/29/22 01/29/22 10:54 11:08 Temperature 98.2 F Pulse Rate 79 Respiratory 16 Rate Blood Pressure 118/76 [Left] O2 Sat by Pulse 99 99 Oximetry - Reevaluation(s) Reevaluation #1: 01/29/22 13:47 41-year-old male patient on a 1013 for suicidal and homicidal ideations. Patient has been cleared medically, now. Patient is COVID-19 positive. ED Medical Decision Making - Lab Data Result diagrams: 01/29/22 12:29 01/29/22 12:29 - Differential Diagnosis Malingering, suicidal ideations, acute psychosis, alcohol intoxication Critical care attestation.: If time is entered above; I have spent that time in minutes in the direct care of this critically ill patient, excluding procedure time. ED Disposition Clinical Impression: Suicidal ideations, Homicidal ideations Disposition: 30 STILL A PATIENT Is pt being admited?: No Does the pt Need Aspirin: No Condition: Stable
[2022-01-29 13:16] LABS: BUN/Creatinine Ratio 12; Blood Urea Nitrogen 12 mg/dL (9-20); Hemolysis Index 2
[2022-01-29 13:24] LABS: Basophils % (Auto) 0.9 % (0.0-1.8); Eosinophils % (Auto) 0.6 % (0.0-4.3); Hematocrit 40.5 % (35.5-45.6); Hemoglobin 13.3 gm/dl (11.8-15.2); Lymphocytes # (Auto) 1.4 K/mm3 (1.2-5.4); Lymphocytes % (Auto) 30.6 % (13.4-35.0); Mean Corpuscular HGB Conc 33 % (32-34); Mean Corpuscular Volume 83 fl (84-94); Monocytes # (Auto) 0.3 K/mm3 (0.0-0.8); Monocytes % (Auto) 6.5 % (0.0-7.3); Platelet Count 388 K/mm3 (140-440); Red Blood Count 4.88 M/mm3 (3.65-5.03); Red Cell Distribution Width 18.6 % (13.2-15.2)
[2022-01-29] MEDS ORDERED: POTASSIUM CHLORIDE ER 20 MEQ TAB PO ONE (13:54)
[2022-01-29 14:11] LABS: Amphetamine Screen,Urine Negative; Benzodiazepines Screen,Urine Negative; Cannabinoid Screen,Urine Negative; Cocaine Screen,Urine Negative; Methadone Screen,Urine Negative; Opiate Screen,Urine Negative
[2022-01-29 14:16] LABS: Mucus,Urine 3+ /HPF
[2022-01-29 14:26] LABS: Color,Urine Yellow (Yellow)
[2022-01-29 14:27] LABS: Bilirubin,Urine 1+ (Negative); Blood,Urine 1+ (Negative)
[2022-01-29 14:29] LABS: Ictotest,Urine Positive (Negative)
--- NOTE | 2022-01-30 11:50 | Consultation ---
History of Present Illness - Reason for Consult Consult date: 01/30/22 Reason for consult: psychosis - History of Present Psychiatric Illness The patient was seen today. He says he is having family problems. The patient says he wants to hurt his uncle. He says he wants to shoot him. He denies suicidal thoughts or hallucinations. PAST PSYCHIATRIC HISTORY Diagnoses: Bipolar Suicide attempts or Self-harm behavior: Yes Prior psychiatric hospitalizations: Yes Substance Abuse history: Alcohol Previous psychiatric medications tried: Seroquel, Depakote Outpatient treatment: Denies PAST MEDICAL HISTORY: none reported Family Psychiatric History: None reported or documented SOCIAL HISTORY Marital Status: Single Living Arrangements: Lives alone Employment Status: Unemployed Access to guns/weapons: Denies Education: 12th grade History of Abuse: none reported Legal History: none reported REVIEW OF SYSTEMS Constitutional: Negative for weight loss ENT: Negative for stridor Respiratory: Negative for cough or hemoptysis All other systems reviewed and are negative MENTAL STATUS EXAMINATION General Appearance and Behavior: Age appropriate, good hygiene, wearing appropriate clothes, fair eye contact, cooperative polite with questioning. Cooperation: Participating/engaged, guarded Psychomotor Behavior: unremarkable and within normal limits Mood: Depressed Affect and affective range: congruent with mood Thought Process: Goal directed Thought Content: HI Speech: Normal volume, Regular rate and rhythm, Suicidal Ideation: Denies Homicidal Ideation: Yes Hallucinations: Denies Delusions: None Impulse Control: Normal Insight and Judgment: Limited insight and judgment, Memory: Normal, Attention: Normal, Orientation: Alert, oriented, Assessment and Plan (1) Bipolar Disorder Treatment 1013 Seroquel 100mg po BID Depakote 250mg po BID Trazodone 50mg po qhs Sitter: Per primary Medical: Per primary Disposition: recommend acute inpatient psychiatric treatment. Will follow. Thanks Case staffed with Dr. Uribe Medications and Allergies Allergies Allergy/AdvReac Type Severity Reaction Status Date / Time No Known Allergies Allergy Verified 01/29/22 10:59 Home Medications Medication Instructions Recorded Confirmed Last Taken Type Divalproex ER [Depakote ER] 250 mg PO DAILY #30 tablet 09/25/17 01/29/22 Unknown Rx QUEtiapine [SEROquel] 100 mg PO QHS 30 Days #30 12/17/21 01/29/22 Unknown Rx Paliperidone Palmitate [Invega 234 mg IM QMONTH 01/29/22 01/29/22 Unknown History Sustenna] Quetiapine Fumarate [SEROquel] 50 mg PO DAILY 01/29/22 01/29/22 Unknown History Mental Status Exam - Vital signs Last Vital Signs Temp 98.3 F 01/30/22 09:04 Pulse 88 01/30/22 09:04 Resp 20 01/30/22 09:04 BP 163/87 01/30/22 09:04 Pulse Ox 99 01/30/22 09:23 Results Result Diagrams: 01/29/22 12:29 01/29/22 12:29 Abnormal lab results 01/29/22 01/29/22 01/29/22 Range/Units 11:19 12:29 12:29 MCV (84-94) fl MCH (28-32) pg RDW (13.2-15.2) % Potassium (3.6-5.0) mmol/L Glucose (75-100) mg/dL Salicylates < 0.3 L (2.8-20.0) mg/dL Acetaminophen 5.0 L (10.0-30.0) ug/mL SARS-CoV-2 (PCR) Positive A (Negative) 01/29/22 01/29/22 Range/Units 12:29 12:29 MCV 83 L (84-94) fl MCH 27 L (28-32) pg RDW 18.6 H (13.2-15.2) % Potassium 3.5 L (3.6-5.0) mmol/L Glucose 119 H (75-100) mg/dL Salicylates (2.8-20.0) mg/dL Acetaminophen (10.0-30.0) ug/mL SARS-CoV-2 (PCR) (Negative) All other labs normal.
[2022-01-30] MEDS: QUEtiapine 100 MG TAB PO SCH ×2 (12:06→21:38)
[2022-01-30] MEDS: DIVALPROEX DR 250 MG TAB PO SCH ×2 (12:06→21:38)
[2022-01-30] MEDS ORDERED: HALOPERIDOL LACTATE 5 MG/1 ML INJ IM PRN (17:55)
[2022-01-30] MEDS ORDERED: LORazepam 2 MG/ML VIAL IM PRN (17:55)
--- NOTE | 2022-01-30 17:57 | Event Note ---
Date: 01/30/22 The patient was evaluated in the emergency department for symptoms described in the history of present illness. He/she was evaluated in the context of the global COVID-19 pandemic, which necessitated consideration that the patient might be at risk for infection with the virus that causes COVID-19. Institutional protocols and algorithms that pertain to the evaluation of patients at risk for COVID-19 are in a state of rapid change based on information released by regulatory bodies including the CDC and federal and state organizations. These policies and algorithms were followed during the patient's care in the emergency department. Please note that these policies, procedures and recommendations changed on a rapid basis. Laboratory studies, vital signs, nursing documentation, ER documentation, and psychiatric documentation are reviewed and appreciated. Nursing team reports no acute events this morning or concerns. The patient is awake and not in any acute distress The patient was deemed medically suitable for psychiatric disposition and placement during his initial ER evaluation. The patient continues to remain medically suitable for psychiatric placement and disposition. He is currently pending psychiatric placement. He is not hypoxic. He has had positive COVID-19 swab since November 2021. Vital Signs 01/29/22 01/29/22 01/29/22 10:54 11:08 17:28 Temperature 98.2 F 98.6 F Pulse Rate 79 80 Respiratory 16 18 Rate Blood Pressure 118/76 121/83 [Left] O2 Sat by Pulse 99 99 97 Oximetry 01/30/22 01/30/22 01/30/22 09:04 09:23 17:23 Temperature 98.3 F 98.8 F Pulse Rate 88 75 Respiratory 20 18 Rate Blood Pressure 163/87 108/61 [Left] O2 Sat by Pulse 99 99 98 Oximetry Lab Results 01/29/22 01/29/22 01/29/22 Range/Units 11:19 12:29 12:29 WBC (4.5-11.0) K/mm3 RBC (3.65-5.03) M/mm3 Hgb (11.8-15.2) gm/dl Hct (35.5-45.6) % MCV (84-94) fl MCH (28-32) pg MCHC (32-34) % RDW (13.2-15.2) % Plt Count (140-440) K/mm3 Lymph % (Auto) (13.4-35.0) % [place] % (Auto) (0.0-7.3) % Eos % (Auto) (0.0-4.3) % Baso % (Auto) (0.0-1.8) % Lymph # (Auto) (1.2-5.4) K/mm3 [place] # (Auto) (0.0-0.8) K/mm3 Eos # (Auto) (0.0-0.4) K/mm3 Baso # (Auto) (0.0-0.1) K/mm3 Seg Neutrophils % (40.0-70.0) % Seg Neutrophils # (1.8-7.7) K/mm3 Sodium (137-145) mmol/L Potassium (3.6-5.0) mmol/L Chloride (98-107) mmol/L Carbon Dioxide (22-30) mmol/L Anion Gap mmol/L BUN (9-20) mg/dL Creatinine (0.8-1.3) mg/dL Estimated GFR ml/min BUN/Creatinine Ratio % Glucose (75-100) mg/dL Calcium (8.4-10.2) mg/dL Urine Color (Yellow) Urine Turbidity (Clear) Urine pH (5.0-7.0) Ur Specific [place] (1.003-1.030) Urine Protein (Negative) mg/dL Urine Glucose (UA) (Negative) mg/dL Urine Ketones (Negative) mg/dL Urine Blood (Negative) Urine Nitrite (Negative) Ur Reducing Substances Urine Bilirubin (Negative) Urine Ictotest (Negative) Urine Urobilinogen (<2.0) mg/dL Ur Leukocyte Esterase (Negative) Urine WBC (Auto) (0.0-6.0) /HPF Urine RBC (Auto) (0.0-6.0) /HPF U Epithel Cells (Auto) (0-13.0) /HPF Urine Mucus /HPF Salicylates < 0.3 L (2.8-20.0) mg/dL Urine Opiates Screen Urine Methadone Screen Acetaminophen 5.0 L (10.0-30.0) ug/mL Ur Barbiturates Screen Ur Phencyclidine Scrn Ur Amphetamines Screen U Benzodiazepines Scrn Urine Cocaine Screen U Marijuana (THC) Screen Drugs of Abuse Note Plasma/Serum Alcohol (0-0.07) % SARS-CoV-2 (PCR) Positive A (Negative) 01/29/22 01/29/22 01/29/22 Range/Units 12:29 12:29 12:29 WBC 4.7 (4.5-11.0) K/mm3 RBC 4.88 (3.65-5.03) M/mm3 Hgb 13.3 (11.8-15.2) gm/dl Hct 40.5 (35.5-45.6) % MCV 83 L (84-94) fl MCH 27 L (28-32) pg MCHC 33 (32-34) % RDW 18.6 H (13.2-15.2) % Plt Count 388 (140-440) K/mm3 Lymph % (Auto) 30.6 (13.4-35.0) % [place] % (Auto) 6.5 (0.0-7.3) % Eos % (Auto) 0.6 (0.0-4.3) % Baso % (Auto) 0.9 (0.0-1.8) % Lymph # (Auto) 1.4 (1.2-5.4) K/mm3 [place] # (Auto) 0.3 (0.0-0.8) K/mm3 Eos # (Auto) 0.0 (0.0-0.4) K/mm3 Baso # (Auto) 0.0 (0.0-0.1) K/mm3 Seg Neutrophils % 61.4 (40.0-70.0) % Seg Neutrophils # 2.9 (1.8-7.7) K/mm3 Sodium 143 (137-145) mmol/L Potassium 3.5 L (3.6-5.0) mmol/L Chloride 106.9 (98-107) mmol/L Carbon Dioxide 27 (22-30) mmol/L Anion Gap 13 mmol/L BUN 12 (9-20) mg/dL Creatinine 1.0 (0.8-1.3) mg/dL Estimated GFR > 60 ml/min BUN/Creatinine Ratio 12 % Glucose 119 H (75-100) mg/dL Calcium 9.0 (8.4-10.2) mg/dL Urine Color (Yellow) Urine Turbidity (Clear) Urine pH (5.0-7.0) Ur Specific [place] (1.003-1.030) Urine Protein (Negative) mg/dL Urine Glucose (UA) (Negative) mg/dL Urine Ketones (Negative) mg/dL Urine Blood (Negative) Urine Nitrite (Negative) Ur Reducing Substances Urine Bilirubin (Negative) Urine Ictotest (Negative) Urine Urobilinogen (<2.0) mg/dL Ur Leukocyte Esterase (Negative) Urine WBC (Auto) (0.0-6.0) /HPF Urine RBC (Auto) (0.0-6.0) /HPF U Epithel Cells (Auto) (0-13.0) /HPF Urine Mucus /HPF Salicylates (2.8-20.0) mg/dL Urine Opiates Screen Urine Methadone Screen Acetaminophen (10.0-30.0) ug/mL Ur Barbiturates Screen Ur Phencyclidine Scrn Ur Amphetamines Screen U Benzodiazepines Scrn Urine Cocaine Screen U Marijuana (THC) Screen Drugs of Abuse Note Plasma/Serum Alcohol < 0.01 (0-0.07) % SARS-CoV-2 (PCR) (Negative) 01/29/22 01/29/22 Range/Units 13:52 13:52 WBC (4.5-11.0) K/mm3 RBC (3.65-5.03) M/mm3 Hgb (11.8-15.2) gm/dl Hct (35.5-45.6) % MCV (84-94) fl MCH (28-32) pg MCHC (32-34) % RDW (13.2-15.2) % Plt Count (140-440) K/mm3 Lymph % (Auto) (13.4-35.0) % [place] % (Auto) (0.0-7.3) % Eos % (Auto) (0.0-4.3) % Baso % (Auto) (0.0-1.8) % Lymph # (Auto) (1.2-5.4) K/mm3 [place] # (Auto) (0.0-0.8) K/mm3 Eos # (Auto) (0.0-0.4) K/mm3 Baso # (Auto) (0.0-0.1) K/mm3 Seg Neutrophils % (40.0-70.0) % Seg Neutrophils # (1.8-7.7) K/mm3 Sodium (137-145) mmol/L Potassium (3.6-5.0) mmol/L Chloride (98-107) mmol/L Carbon Dioxide (22-30) mmol/L Anion Gap mmol/L BUN (9-20) mg/dL Creatinine (0.8-1.3) mg/dL Estimated GFR ml/min BUN/Creatinine Ratio % Glucose (75-100) mg/dL Calcium (8.4-10.2) mg/dL Urine Color Yellow (Yellow) Urine Turbidity Clear (Clear) Urine pH 5.0 (5.0-7.0) Ur Specific [place] 1.020 (1.003-1.030) Urine Protein 30 mg/dl (Negative) mg/dL Urine Glucose (UA) Negative (Negative) mg/dL Urine Ketones Negative (Negative) mg/dL Urine Blood 1+ (Negative) Urine Nitrite Negative (Negative) Ur Reducing Substances Not Reportable Urine Bilirubin 1+ (Negative) Urine Ictotest Positive (Negative) Urine Urobilinogen 0.0 (<2.0) mg/dL Ur Leukocyte Esterase Negative (Negative) Urine WBC (Auto) 1.0 (0.0-6.0) /HPF Urine RBC (Auto) 22.0 (0.0-6.0) /HPF U Epithel Cells (Auto) 3.0 (0-13.0) /HPF Urine Mucus 3+ /HPF Salicylates (2.8-20.0) mg/dL Urine Opiates Screen Negative Urine Methadone Screen Negative Acetaminophen (10.0-30.0) ug/mL Ur Barbiturates Screen Negative Ur Phencyclidine Scrn Negative Ur Amphetamines Screen Negative U Benzodiazepines Scrn Negative Urine Cocaine Screen Negative U Marijuana (THC) Screen Negative Drugs of Abuse Note Disclamer Plasma/Serum Alcohol (0-0.07) % SARS-CoV-2 (PCR) (Negative)
[2022-01-30] MEDS: traZODone 50 MG TAB PO SCH (21:38)
--- NOTE | 2022-01-31 09:30 | Progress Note ---
Subjective - Reason for Consult Consult date: 01/31/22 Reason for consult: homicidal - Chief Complaint Chief complaint: The patient was seen today. He verbalizes feeling a little better, but still endorses wanting to kill his uncle. He says "I have two of them. We just don't get a long." I ask if he had plans to do something to one of them, he says "yea, whatever. Probably shoot one of them. But I do feel better than yesterday." He says he came to the hospital because he was depressed and to prevent him from doing something crazy. He denies hallucinations. REVIEW OF SYSTEMS Constitutional: Negative for weight loss ENT: Negative for stridor Respiratory: Negative for cough or hemoptysis All other systems reviewed and are negative MENTAL STATUS EXAMINATION General Appearance and Behavior: Age appropriate, good hygiene, wearing appropriate clothes, fair eye contact, cooperative polite with questioning. Cooperation: Participating/engaged, guarded Psychomotor Behavior: unremarkable and within normal limits Mood: Depressed Affect and affective range: congruent with mood Thought Process: Goal directed Thought Content: HI Speech: Normal volume, Regular rate and rhythm, Suicidal Ideation: Denies Homicidal Ideation: Yes Hallucinations: Denies Delusions: None Impulse Control: Normal Insight and Judgment: Limited insight and judgment, Memory: Normal, Attention: Normal, Orientation: Alert, oriented, Assessment and Plan (1) Bipolar Disorder Treatment 1013 Increase Seroquel 150mg po BID Increase Depakote 250mg po TID Sitter: Per primary Medical: Per primary Disposition: recommend acute inpatient psychiatric treatment. Will follow. Thanks Case staffed with Dr. Uribe Mental Status Exam - Vital signs Last Vital Signs Temp 98.7 F 01/30/22 21:21 Pulse 74 01/30/22 21:21 Resp 20 01/30/22 21:21 BP 115/68 01/30/22 21:21 Pulse Ox 100 01/30/22 21:21
[2022-01-31] MEDS: QUEtiapine 100 MG TAB PO SCH ×2 (10:11→22:00)
[2022-01-31] MEDS: DIVALPROEX DR 250 MG TAB PO SCH ×2 (14:16→21:59)
--- NOTE | 2022-01-31 17:12 | Event Note ---
Date: 01/31/22 The patient was evaluated in the emergency department for symptoms described in the history of present illness. He/she was evaluated in the context of the global COVID-19 pandemic, which necessitated consideration that the patient might be at risk for infection with the virus that causes COVID-19. Institutional protocols and algorithms that pertain to the evaluation of patients at risk for COVID-19 are in a state of rapid change based on information released by regulatory bodies including the CDC and federal and state organizations. These policies and algorithms were followed during the patient's care in the emergency department. Please note that these policies, procedures and recommendations changed on a rapid basis. Laboratory studies, vital signs, nursing documentation, ER documentation, and psychiatric documentation are reviewed and appreciated. Nursing team reports no acute events this morning or concerns. The patient is awake and ambulating and does not appear to be in any acute distress. The patient was deemed medically suitable for psychiatric disposition and placement during his initial ER evaluation. The patient continues to remain medically suitable for psychiatric placement and disposition. He is currently pending psychiatric placement. Please note that in spite of having a positive COVID-19 test, this does not represent a medical contraindication to psychiatric disposition, placement in consultation. It is not a medical preclusion to psychiatric therapy or transfer Vital Signs 01/29/22 01/29/22 01/29/22 10:54 11:08 17:28 Temperature 98.2 F 98.6 F Pulse Rate 79 80 Respiratory 16 18 Rate Blood Pressure 118/76 121/83 [Left] O2 Sat by Pulse 99 99 97 Oximetry 01/30/22 01/30/22 01/30/22 09:04 09:23 17:23 Temperature 98.3 F 98.8 F Pulse Rate 88 75 Respiratory 20 18 Rate Blood Pressure 163/87 108/61 [Left] O2 Sat by Pulse 99 99 98 Oximetry 01/30/22 01/31/22 21:21 10:43 Temperature 98.7 F 97.3 F L Pulse Rate 74 59 L Respiratory 20 18 Rate Blood Pressure 115/68 127/70 [Left] O2 Sat by Pulse 100 100 Oximetry Lab Results 01/29/22 01/29/22 01/29/22 Range/Units 11:19 12:29 12:29 WBC (4.5-11.0) K/mm3 RBC (3.65-5.03) M/mm3 Hgb (11.8-15.2) gm/dl Hct (35.5-45.6) % MCV (84-94) fl MCH (28-32) pg MCHC (32-34) % RDW (13.2-15.2) % Plt Count (140-440) K/mm3 Lymph % (Auto) (13.4-35.0) % [place] % (Auto) (0.0-7.3) % Eos % (Auto) (0.0-4.3) % Baso % (Auto) (0.0-1.8) % Lymph # (Auto) (1.2-5.4) K/mm3 [place] # (Auto) (0.0-0.8) K/mm3 Eos # (Auto) (0.0-0.4) K/mm3 Baso # (Auto) (0.0-0.1) K/mm3 Seg Neutrophils % (40.0-70.0) % Seg Neutrophils # (1.8-7.7) K/mm3 Sodium (137-145) mmol/L Potassium (3.6-5.0) mmol/L Chloride (98-107) mmol/L Carbon Dioxide (22-30) mmol/L Anion Gap mmol/L BUN (9-20) mg/dL Creatinine (0.8-1.3) mg/dL Estimated GFR ml/min BUN/Creatinine Ratio % Glucose (75-100) mg/dL Calcium (8.4-10.2) mg/dL Urine Color (Yellow) Urine Turbidity (Clear) Urine pH (5.0-7.0) Ur Specific [place] (1.003-1.030) Urine Protein (Negative) mg/dL Urine Glucose (UA) (Negative) mg/dL Urine Ketones (Negative) mg/dL Urine Blood (Negative) Urine Nitrite (Negative) Ur Reducing Substances Urine Bilirubin (Negative) Urine Ictotest (Negative) Urine Urobilinogen (<2.0) mg/dL Ur Leukocyte Esterase (Negative) Urine WBC (Auto) (0.0-6.0) /HPF Urine RBC (Auto) (0.0-6.0) /HPF U Epithel Cells (Auto) (0-13.0) /HPF Urine Mucus /HPF Salicylates < 0.3 L (2.8-20.0) mg/dL Urine Opiates Screen Urine Methadone Screen Acetaminophen 5.0 L (10.0-30.0) ug/mL Ur Barbiturates Screen Ur Phencyclidine Scrn Ur Amphetamines Screen U Benzodiazepines Scrn Urine Cocaine Screen U Marijuana (THC) Screen Drugs of Abuse Note Plasma/Serum Alcohol (0-0.07) % SARS-CoV-2 (PCR) Positive A (Negative) 01/29/22 01/29/22 01/29/22 Range/Units 12:29 12:29 12:29 WBC 4.7 (4.5-11.0) K/mm3 RBC 4.88 (3.65-5.03) M/mm3 Hgb 13.3 (11.8-15.2) gm/dl Hct 40.5 (35.5-45.6) % MCV 83 L (84-94) fl MCH 27 L (28-32) pg MCHC 33 (32-34) % RDW 18.6 H (13.2-15.2) % Plt Count 388 (140-440) K/mm3 Lymph % (Auto) 30.6 (13.4-35.0) % [place] % (Auto) 6.5 (0.0-7.3) % Eos % (Auto) 0.6 (0.0-4.3) % Baso % (Auto) 0.9 (0.0-1.8) % Lymph # (Auto) 1.4 (1.2-5.4) K/mm3 [place] # (Auto) 0.3 (0.0-0.8) K/mm3 Eos # (Auto) 0.0 (0.0-0.4) K/mm3 Baso # (Auto) 0.0 (0.0-0.1) K/mm3 Seg Neutrophils % 61.4 (40.0-70.0) % Seg Neutrophils # 2.9 (1.8-7.7) K/mm3 Sodium 143 (137-145) mmol/L Potassium 3.5 L (3.6-5.0) mmol/L Chloride 106.9 (98-107) mmol/L Carbon Dioxide 27 (22-30) mmol/L Anion Gap 13 mmol/L BUN 12 (9-20) mg/dL Creatinine 1.0 (0.8-1.3) mg/dL Estimated GFR > 60 ml/min BUN/Creatinine Ratio 12 % Glucose 119 H (75-100) mg/dL Calcium 9.0 (8.4-10.2) mg/dL Urine Color (Yellow) Urine Turbidity (Clear) Urine pH (5.0-7.0) Ur Specific [place] (1.003-1.030) Urine Protein (Negative) mg/dL Urine Glucose (UA) (Negative) mg/dL Urine Ketones (Negative) mg/dL Urine Blood (Negative) Urine Nitrite (Negative) Ur Reducing Substances Urine Bilirubin (Negative) Urine Ictotest (Negative) Urine Urobilinogen (<2.0) mg/dL Ur Leukocyte Esterase (Negative) Urine WBC (Auto) (0.0-6.0) /HPF Urine RBC (Auto) (0.0-6.0) /HPF U Epithel Cells (Auto) (0-13.0) /HPF Urine Mucus /HPF Salicylates (2.8-20.0) mg/dL Urine Opiates Screen Urine Methadone Screen Acetaminophen (10.0-30.0) ug/mL Ur Barbiturates Screen Ur Phencyclidine Scrn Ur Amphetamines Screen U Benzodiazepines Scrn Urine Cocaine Screen U Marijuana (THC) Screen Drugs of Abuse Note Plasma/Serum Alcohol < 0.01 (0-0.07) % SARS-CoV-2 (PCR) (Negative) 01/29/22 01/29/22 Range/Units 13:52 13:52 WBC (4.5-11.0) K/mm3 RBC (3.65-5.03) M/mm3 Hgb (11.8-15.2) gm/dl Hct (35.5-45.6) % MCV (84-94) fl MCH (28-32) pg MCHC (32-34) % RDW (13.2-15.2) % Plt Count (140-440) K/mm3 Lymph % (Auto) (13.4-35.0) % [place] % (Auto) (0.0-7.3) % Eos % (Auto) (0.0-4.3) % Baso % (Auto) (0.0-1.8) % Lymph # (Auto) (1.2-5.4) K/mm3 [place] # (Auto) (0.0-0.8) K/mm3 Eos # (Auto) (0.0-0.4) K/mm3 Baso # (Auto) (0.0-0.1) K/mm3 Seg Neutrophils % (40.0-70.0) % Seg Neutrophils # (1.8-7.7) K/mm3 Sodium (137-145) mmol/L Potassium (3.6-5.0) mmol/L Chloride (98-107) mmol/L Carbon Dioxide (22-30) mmol/L Anion Gap mmol/L BUN (9-20) mg/dL Creatinine (0.8-1.3) mg/dL Estimated GFR ml/min BUN/Creatinine Ratio % Glucose (75-100) mg/dL Calcium (8.4-10.2) mg/dL Urine Color Yellow (Yellow) Urine Turbidity Clear (Clear) Urine pH 5.0 (5.0-7.0) Ur Specific [place] 1.020 (1.003-1.030) Urine Protein 30 mg/dl (Negative) mg/dL Urine Glucose (UA) Negative (Negative) mg/dL Urine Ketones Negative (Negative) mg/dL Urine Blood 1+ (Negative) Urine Nitrite Negative (Negative) Ur Reducing Substances Not Reportable Urine Bilirubin 1+ (Negative) Urine Ictotest Positive (Negative) Urine Urobilinogen 0.0 (<2.0) mg/dL Ur Leukocyte Esterase Negative (Negative) Urine WBC (Auto) 1.0 (0.0-6.0) /HPF Urine RBC (Auto) 22.0 (0.0-6.0) /HPF U Epithel Cells (Auto) 3.0 (0-13.0) /HPF Urine Mucus 3+ /HPF Salicylates (2.8-20.0) mg/dL Urine Opiates Screen Negative Urine Methadone Screen Negative Acetaminophen (10.0-30.0) ug/mL Ur Barbiturates Screen Negative Ur Phencyclidine Scrn Negative Ur Amphetamines Screen Negative U Benzodiazepines Scrn Negative Urine Cocaine Screen Negative U Marijuana (THC) Screen Negative Drugs of Abuse Note Disclamer Plasma/Serum Alcohol (0-0.07) % SARS-CoV-2 (PCR) (Negative)
[2022-01-31] MEDS: traZODone 50 MG TAB PO SCH (22:00)
[2022-01-31 22:22] VITALS: BP 124/74
[2022-02-01] MEDS: DIVALPROEX DR 250 MG TAB PO SCH (08:05)
--- NOTE | 2022-02-01 09:59 | Progress Note ---
Subjective - Reason for Consult Consult date: 02/01/22 Reason for consult: homicidal - Chief Complaint Chief complaint: The patient was seen today. He says he feels a lot better. He says he slept good and feels rested. He denies SI/HI. He says "I don't want to hurt my uncles or nobody. I feel better." He denies hallucinations of any kind. REVIEW OF SYSTEMS Constitutional: Negative for weight loss ENT: Negative for stridor Respiratory: Negative for cough or hemoptysis All other systems reviewed and are negative MENTAL STATUS EXAMINATION General Appearance and Behavior: Age appropriate, good hygiene, wearing appropriate clothes, good eye contact, cooperative polite with questioning. Cooperation: Participating/engaged, guarded Psychomotor Behavior: unremarkable and within normal limits Mood: better Affect and affective range: congruent with mood Thought Process: Goal directed Thought Content: Denies Speech: Normal volume, Regular rate and rhythm, Suicidal Ideation: Denies Homicidal Ideation: Denies Hallucinations: Denies Delusions: None Impulse Control: Normal Insight and Judgment: Limited insight and judgment, Memory: Normal, Attention: Normal, Orientation: Alert, oriented, Assessment and Plan (1) Bipolar Disorder Treatment d/c 1013 Seroquel 150mg po BID Depakote 250mg po TID Trazodone 50mg po qhs Sitter: Per primary Medical: Per primary Disposition: Do not recommend acute inpatient psychiatric treatment. The patient understands that if SI/HI or any fear of endangerment for himself or others he is to seek immediate assistance The fruit raiser to further discuss safety plan and give all necessary outpatient resources Will sign off. Thanks Case staffed with Dr. Uribe Mental Status Exam - Vital signs Last Vital Signs Temp 98.1 F 01/31/22 22:21 Pulse 77 01/31/22 22:21 Resp 18 01/31/22 22:21 BP 124/74 01/31/22 22:21 Pulse Ox 100 01/31/22 22:21
[2022-02-01] MEDS: QUEtiapine 100 MG TAB PO SCH (10:07)
--- NOTE | 2022-02-01 12:17 | Event Note ---
Date: 02/01/22 The patient was evaluated in the emergency department for symptoms described in the history of present illness. He/she was evaluated in the context of the global COVID-19 pandemic, which necessitated consideration that the patient might be at risk for infection with the virus that causes COVID-19. Institutional protocols and algorithms that pertain to the evaluation of patients at risk for COVID-19 are in a state of rapid change based on information released by regulatory bodies including the CDC and federal and state organizations. These policies and algorithms were followed during the patient's care in the emergency department. Please note that these policies, procedures and recommendations changed on a rapid basis. Laboratory studies, vital signs, nursing documentation, ER documentation, and psychiatric documentation are reviewed and appreciated. Nursing team reports no acute events this morning or concerns. The patient is awake and ambulating and does not appear to be in any acute distress. The patient was deemed medically suitable for psychiatric disposition and placement during his initial ER evaluation. The patient continues to remain medically suitable for psychiatric placement and disposition. He is currently pending psychiatric placement. The psychiatric team have recommended discharge and discontinuation of 1013. He will therefore be discharged with outpatient follow-up Vital Signs 01/29/22 01/29/22 01/29/22 10:54 11:08 17:28 Temperature 98.2 F 98.6 F Pulse Rate 79 80 Respiratory 16 18 Rate Blood Pressure 118/76 121/83 [Left] O2 Sat by Pulse 99 99 97 Oximetry 01/30/22 01/30/22 01/30/22 09:04 09:23 17:23 Temperature 98.3 F 98.8 F Pulse Rate 88 75 Respiratory 20 18 Rate Blood Pressure 163/87 108/61 [Left] O2 Sat by Pulse 99 99 98 Oximetry 01/30/22 01/31/22 01/31/22 21:21 10:43 22:21 Temperature 98.7 F 97.3 F L 98.1 F Pulse Rate 74 59 L 77 Respiratory 20 18 18 Rate Blood Pressure 115/68 127/70 124/74 [Left] O2 Sat by Pulse 100 100 100 Oximetry
== END 2022-02-01 13:23 | disposition home or self-care (01) ==
LOC: ED 10:48
DX: R45.851 Suicidal ideations (principal); R45.850 Homicidal ideations; Z20.822 Contact with and (suspected) exposure to COVID-19; F10.20 Alcohol dependence, uncomplicated; F31.9 Bipolar disorder, unspecified
CPT/HCPCS: 36415; 80048; 80307; 81001; 85025; 99284; U0003; 80320; G0480

== ENCOUNTER 2022-03-04 01:04 | Emergency (ER) | payer MEDICAID ==
[2022-03-04 02:02] VITALS: BP 132/66
--- NOTE | 2022-03-04 08:39 | Emergency Department Report ---
Burn HPI - History Stated Complaint: CUT UNDER FOOT Chief Complaint: Wound/Laceration Time Seen by Provider: 03/04/22 07:58 Other History: 41-year-old black male with past medical history of schizophrenia presents to the emergency department for evaluation of cut to the bottom of left foot. He states that he had a cut to the bottom of his left foot several weeks ago that has since healed he hit it yesterday, and he had a little bit of bleedi ng from the area. He states that area is now hard but he denies any pain. - Home Meds and Allergies Home Medications: Home Medications Medication Instructions Recorded Confirmed Last Taken Paliperidone Palmitate [Invega 234 mg IM QMONTH 01/29/22 01/29/22 Unknown Sustenna] Quetiapine Fumarate [SEROquel] 50 mg PO DAILY 01/29/22 01/29/22 Unknown Previous Rx's Medication Instructions Recorded Last Taken Type Divalproex ER [Depakote ER] 250 mg PO DAILY #30 tablet 09/25/17 Unknown Rx QUEtiapine [SEROquel] 100 mg PO QHS 30 Days #30 12/17/[address] [DepaKOTE DR] 250 mg PO TID #60 tablet 02/01/22 Unknown Rx QUEtiapine [SEROquel] 150 mg PO BID #90 02/01/22 Unknown Rx Trazodone HCl 50 mg PO QHS #30 02/01/22 Unknown Rx Salicylic Acid [Medicated [place] 1 each TP Q72HR #10 patch 03/04/22 Unknown Rx Removers] Allergies/Adverse Reactions: Allergies Allergy/AdvReac Type Severity Reaction Status Date / Time No Known Allergies Allergy Verified 01/29/22 10:59 ED Review of Systems ROS: Stated complaint: CUT UNDER FOOT Other details as noted in HPI Comment: All other systems reviewed and negative Constitutional: denies: chills, fever Respiratory: denies: SOB with exertion Cardiovascular: denies: chest pain, palpitations Gastrointestinal: denies: abdominal pain, nausea, vomiting Musculoskeletal: denies: back pain Neurological: denies: headache, weakness ED Past Medical Hx - Past Medical History Previous Medical History?: Yes Hx Headaches / Migraines: Yes Hx Psychiatric Treatment: Yes (anger management issues, Bipolar, ETOH) - Surgical History Past Surgical History?: No - Social History Smoking Status: Never Smoker Substance Use Type: None - Medications Home Medications: Home Medications Medication Instructions Recorded Confirmed Last Taken Type Divalproex ER [Depakote ER] 250 mg PO DAILY #30 tablet 09/25/17 01/29/22 Unknown Rx QUEtiapine [SEROquel] 100 mg PO QHS 30 Days #30 12/17/21 01/29/22 Unknown Rx Paliperidone Palmitate [Invega 234 mg IM QMONTH 01/29/22 01/29/22 Unknown History Sustenna] Quetiapine Fumarate [SEROquel] 50 mg PO DAILY 01/29/22 01/29/[address] [DepaKOTE DR] 250 mg PO TID #60 tablet 02/01/22 Unknown Rx QUEtiapine [SEROquel] 150 mg PO BID #90 02/01/22 Unknown Rx Trazodone HCl 50 mg PO QHS #30 02/01/22 Unknown Rx Salicylic Acid [Medicated [place] 1 each TP Q72HR #10 patch 03/04/22 Unknown Rx Removers] Exam - Exam General: Vital signs noted. No distress. Alert and acting appropriately. HEENT: Yes Moist Mucous Membranes, No Conjuctival Injection, No Corneal Edema Skin: No Erythroderma, No Blistering, No Tenderness, No Edema Exam: Yes Normal Heart Sounds, No Respiratory Distress, No Sensory Deficits, No Musculoskeletal Pain Exam: Noted to have hard skin on the bottom of left foot to area near outside of great toe. No erythema, edema, or pain noted. Area most consistent with callus. ED Course Vital Signs 03/04/22 02:01 Temperature 98.6 F Pulse Rate 100 H Respiratory 18 Rate Blood Pressure 132/66 O2 Sat by Pulse 100 Oximetry ED Medical Decision Making - Medical Decision Making 41-year-old black male with past medical history of schizophrenia presents to the emergency department for evaluation of cut to the bottom of left foot. He states that he had a cut to the bottom of his left foot several weeks ago that has since healed he hit it yesterday, and he had a little bit of bleeding from the area. He states that area is now hard but he denies any pain. Physical exam most consistent with callus. Patient be discharged home with salicylic acid pads to use as directed and advised to follow-up with his primary care provider or podiatry for further evaluation and management and return to the emergency department as needed. He verbalizes understanding of and agreement with plan of care. Critical care attestation.: If time is entered above; I have spent that time in minutes in the direct care of this critically ill patient, excluding procedure time. ED Disposition Clinical Impression: Callus of foot Disposition: 01 HOME / SELF CARE / HOMELESS Is pt being admited?: No Does the pt Need Aspirin: No Condition: Stable Instructions: Corns and Calluses Additional Instructions: Use medications as directed and follow-up with your primary care provider or sulfonator operator for further evaluation and management. Return to the emergency department as needed. Prescriptions: Salicylic Acid [Medicated [place] Removers] 1 each TP Q72HR #10 patch Referrals: TAL COSTA MD [Staff Physician] - 3-5 Days NELLA DAVIS DPM [Staff Physician] - 3-5 Days Time of Disposition: 08:43
== END 2022-03-04 09:09 | disposition home or self-care (01) ==
LOC: ED 01:04
DX: L84 Corns and callosities (principal); G43.909 Migraine, unspecified, not intractable, without status migrainosus; F31.9 Bipolar disorder, unspecified; Z79.899 Other long term (current) drug therapy
CPT/HCPCS: 99282